=== PATIENT | female | born 1955 | race Caucasian/White ===

== ENCOUNTER 2020-05-20 02:14 | Inpatient (IN) | payer OTHER ==
--- OUTSIDE RECORDS SUMMARY | 2020-05-20 02:17 | XMS REPORT | Continuity of Care Document ---
:1955 Author Organization [facility] t Address [address] [place] [address] Care Team Providers Name Role Phone Unavailable Unavailable Unavailable Problems Condition Condition Condition Status Onset Resolution Last Treating Co mments Source Name Details Category Date Date Treatment Clinician Date Encounter Encounter Diagnosis Active [facility] - screening screening Franki alhaji colonoscop colonoscop l y y [facility] Adult Adult Diagnosis Active [facility] general general [facility] medical [facility] exam exam l [facility] Routine Routine Diagnosis Active [facility] gynecologi gynecologi [place] [facility] - sandoval sandoval Memoria examinatio examinatio l n n [facility] Hyperlipid Hyperlipid Diagnosis Active [facility] em[facility], emia, [facility] - mixed mixed [facility] l [facility] Encounter Encounter Problem Active [facility] for for [facility] - screening screening Franki alhaji for for l malignant malignant Outp ati neoplasm neoplasm ent of breast of breast Clin ics Vitamin D Vitamin D Diagnosis Active C [facility] deficiency deficiency [place] [facility] - [facility] Allergic Allergic Problem Active [facility] rhinitis rhinitis [facility] HTN HTN Problem Active [facility] (hypertens (hypertens [place] [facility] - ion) ion) [facility] Viral wart Viral wart Problem Active [facility] Renal Renal Diagnosis Active [facility] insufficie insufficie [place] [facility] - ncy ncy [facility] Yeast Yeast Diagnosis Active [facility] vaginitis vaginitis [facility] s - [facility] Allergies, Adverse Reactions, Alerts Allergy Allergy Status Severity Reaction(s) Onset Inactive Treating Comm ents Source Name Type Date Date Clinician penicill Adverse Active anaphylaxis [facility] in Reaction [facility] Medications Ordered Filled Start Stop Current Ordering Indication Dosage Frequency Signature Comments Components Source Medication Medication Date Date Medication? Clinician (SIG) Name Name Amlodipine Amlodipine Yes Na Ann as [facility] B[facility]-Benaze Besy-Benaze 2-20 directed [facility] - pril HCl pril HCl 00:00: Memor ia 00 l [facility] Voltstephanie Ma Yes Na Ann not [facility] defined [facility]ics Aspir-81 Aspir-81 Yes Na Ann [address] [facility] EpiPen EpiPen Yes Na Ann not [facility] 2-Robert 2-Robert defined [facility] Procedures This patient has no known procedures. Encounters Start End Encounter Admission Attending Care Care Encounter Source Date/Time Date/Time Type Type Clinicians Facility Department ID 2018-04-04 2018-04-04 Outpatient Jeffrey Walker [id number] 09[facility]15:00 09:15:00 [employer] [place] [facility] Family Medicine Medicine [facility] Results This patient has no known results.
[2020-05-20] MEDS ORDERED: METOPROLOL TAR 50 MG TAB ONE (02:37)
[2020-05-20] MEDS ORDERED: FAMOTIDINE 20 MG/2 ML VIAL IV ONE (02:38)
[2020-05-20] MEDS ORDERED: ONDANSETRON 4 MG/2 ML VIAL ONE (02:38)
[2020-05-20] MEDS ORDERED: MORPHINE 2 MG/ML SYR ONE (02:38)
[2020-05-20 03:08] LABS: Protime INR 0.99
[2020-05-20 03:09] LABS: Absolute Lymphocytes (CBC) 2.4 K/uL (0.7-4.9); Basophils % 0.5 % (0-1.3); Hematocrit 38.6 % (36.0-45.0); Lymphocytes % 21.5 % (15.3-44.8); MPV 9.1 fL (7.6-11.3); RBC Red Blood Cell Count 4.02 M/uL (3.86-4.86)
[2020-05-20 03:30] LABS: ALT/SGPT 49 U/L (12-78); AST/SGOT 30 U/L (15-37); Albumin 3.1 g/dL (3.4-5.0); Alkaline Phosphatase 98 U/L (45-117); BUN Blood Urea Nitrogen 12 mg/dL (7-18); Bicarbonate 28 mmol/L (21-32); Bilirubin Direct 0.1 mg/dL (0-0.2); Bilirubin Total 0.4 mg/dL (0.2-1.0); Glucose Level 154 mg/dL (74-106); Lipase 18600 U/L (73-393); Magnesium 2.1 mg/dL (1.8-2.4); NT PRO-BNP 69 pg/mL (<125); Potassium 3.7 mmol/L (3.5-5.1); Sodium Level 145 mmol/L (136-145); Troponin (Emerg Dept Use Only) < 0.02 ng/mL (0.0-0.045)
[2020-05-20] MEDS ORDERED: NA CHLORIDE 0.9% 1,000 ML ONE (03:56)
[2020-05-20] MEDS ORDERED: Levofloxacin500mg IV 500 MG/100 ML BAG IV ONE (03:56)
[2020-05-20 04:11] LABS: HDL Cholesterol 53 mg/dL (40-60); LDL Cholesterol, Calculated 128 (<130)
--- NOTE | 2020-05-20 04:26 | ER ---
Nurse's Notes [facility] Name: Crys Murillo Age: 64 yrs Sex: Female : 1955 Arrival Date: 05/20/2020 Time: 02:15 Bed 5 Private MD: Diagnosis: Abdominal tenderness;Acute pancreatitis;Cholecystitis;Cholelithiasis;Essential (primary) hypertension Presentation: 05/20 02:17 Chief complaint: Patient states: Sudden chest pain radiating to back that began about 1 lp1 hour ago; Vomited x1;. Coronavirus screen: Client denies travel out of the [place] in the last 14 days. At this time, the client does not indicate any symptoms associated with coronavirus-19. Ebola Screen: No symptoms or risks identified at this time. Risk Assessment: Do you want to hurt yourself or someone else? Patient reports no desire to harm self or others. Onset of symptoms was May 20, 2020 at 01:00. 02:17 Method Of Arrival: EMS: [facility] lp1 02:17 Acuity: ANGEL 3 lp1 02:38 Initial Sepsis Screen: Does the patient meet any 2 criteria? No. Patient's initial mg2 sepsis screen is negative. Does the patient have a suspected source of infection? No. Patient's initial sepsis screen is negative. Historical: - Allergies: 02:20 PENICILLINS; lp1 - Home Meds: 02:20 Lotrel 5-20 mg Oral cap 1 cap once daily [Active]; lp1 - PMHx: 02:20 Hypertension; lp1 - PSHx: 02:20 Hysterectomy; lp1 - Immunization history:: Adult Immunizations up to date. - Social history:: Smoking status: Patient denies any tobacco usage or history of. - Family history:: not pertinent. Screenin:20 Abuse screen: Denies threats or abuse. Denies injuries from another. Nutritional lp1 screening: No deficits noted. Tuberculosis screening: No symptoms or risk factors identified. 02:38 Fall Risk IV access (20 points). mg2 Assessment: 02:36 General: Appears in no apparent distress. uncomfortable, Behavior is calm, cooperative. mg2 Pain: Complains of pain in back and chest. Neuro: Level of Consciousness is awake, alert, obeys commands. Cardiovascular: Capillary refill < 3 seconds Patient's skin is warm and dry. Respiratory: Airway is patent Respiratory effort is even, unlabored, Respiratory pattern is regular, symmetrical. GI: Reports vomiting. : No signs and/or symptoms were reported regarding the genitourinary system. EENT: No signs and/or symptoms were reported regarding the EENT system. Derm: Skin is intact, is healthy with good turgor, Skin is pink, warm \T\ dry. normal. Musculoskeletal: Circulation, motion, and sensation intact. Capillary refill < 3 seconds, Reports pain in back. 03:07 Reassessment: patient sent to ct by stretcher. mg2 04:39 Reassessment: Patient appears in no apparent distress at this time. Patient and/or mg2 family updated on plan of care and expected duration. Pain level reassessed. Patient is alert, oriented x 3, equal unlabored respirations, skin warm/dry/pink. Patient denies pain at this time. Patient states feeling better. Vital Signs: 02:17 Temp 98.1(O); Weight 106.59 kg (R); Height 5 ft. 7 in. (170.18 cm); Pain 3/10; lp1 02:24 BP 102 / 50; Pulse 65; Resp 18; Pulse Ox 97% on R/A; mg2 03:00 BP 102 / 56; Pulse 65; Resp 18; Pulse Ox 96% ; ea 04:37 BP 123 / 97; Pulse 78; Resp 18; Pulse Ox 96% on R/A; ea 05:48 BP 146 / 80; Pulse 73; Resp 18; Temp 98.1; Pulse Ox 100% ; mg2 02:17 Body Mass Index 36.81 (106.59 kg, 170.18 cm) lp1 ED Course: 02:15 Patient arrived in ED. mg2 02:17 Chacorta Bob MD is Attending Physician. gonzalo 02:18 Triage completed. lp1 02:18 Arm band placed on. lp1 02:20 Patient has correct armband on for positive identification. yarder operator on. Pulse lp1 ox on. NIBP on. 02:24 Forest Torrse RN is Primary Nurse. mg2 02:37 No provider procedures requiring assistance completed. Maintain EMS IV. Dressing mg2 intact. Good blood return noted. Site clean \T\ dry. Gauge \T\ site: 20 \T\ LAC. 03:19 Radiology exam delayed due to IV insertion attempt and/or patient not having kw1 appropriate IV at this time. 03:29 Inserted saline lock: 22 gauge in left wrist, using aseptic technique. ds4 04:24 Rolando Stroud is Hospitalizing Provider. gonzalo 04:53 Urine Dipstick--Ancillary (enter results) Sent. ds4 07:14 Patient admitted, IV remains in place. mg2 Administered Medications: 02:35 Drug: Pepcid 20 mg Route: IVP; Site: left antecubital; mg2 04:41 Follow up: Response: No adverse reaction mg2 02:35 Drug: morphine 2 mg Route: IVP; Site: left antecubital; mg2 04:42 Follow up: Response: No adverse reaction; RASS: Alert and Calm (0) mg2 02:35 Drug: Zofran (Ondansetron) 4 mg Route: IVP; Site: left antecubital; mg2 04:41 Follow up: Response: No adverse reaction mg2 02:35 Drug: Lopressor (metoprolol TARTRATE) 50 mg Route: PO; mg2 04:41 Follow up: Response: No adverse reaction mg2 03:02 Drug: NS 0.9% 1000 ml Route: IV; Rate: 1 bolus; Site: left antecubital; mg2 04:41 Follow up: Response: No adverse reaction; IV Status: Completed infusion; IV Intake: mg2 1000ml 04:03 Drug: LevaQUIN 500 mg Volume: 100 ml; Route: IVPB; Infused Over: 60 mins; Site: left ea antecubital; 07:14 Follow up: Response: No adverse reaction; IV Status: Completed infusion mg2 04:32 Drug: NS 0.9% 1000 ml Route: IV; Rate: 1 bolus; Site: left antecubital; ea 07:14 Follow up: Response: No adverse reaction; IV Status: Completed infusion; IV Intake: mg2 1000ml 05:02 Drug: NS 0.9% 1000 ml Route: IV; Rate: 125 ml/hr; Site: left antecubital; mg2 Intake: 04:41 IV: 1000ml; Total: 1000ml. mg2 07:14 IV: 1000ml; Total: 2000ml. mg2 Outcome: 04:25 Decision to Hospitalize by Provider. gonzalo 06:20 Admitted to Med/surg accompanied by tech, via wheelchair, with chart, Report called to keyla Olivarez RN 06:20 Condition: stable 06:20 Instructed on the need for admit, Demonstrated understanding of instructions. 07:24 Patient left the ED. ss Signatures: Chacorta Bob MD MD cha Smirch, Shelby, RN RN ss Brit Madera RN RN lp1 Robert Abdi ds4 Toshia Watkins RN RN Rosemary Villeda kw1 Forest Torres RN RN mg2
--- NOTE | 2020-05-20 04:26 | EDPHYS ---
Physician Documentation [facility] Name: Crys Murillo Age: 64 yrs Sex: Female : 1955 Arrival Date: 05/20/2020 Time: 02:15 Bed 5 Private MD: ED Physician Chacorta Bob HPI: 05/20 02:56 This 64 yrs old Female presents to ER via EMS with complaints of abdomem , gonzalo chest and back pain. 02:56 The patient presents with abdominal pain in the epigastric area, abdominal distention gonzalo in the upper abdomen, in the lower abdomen. Onset: The symptoms/episode began/occurred just prior to arrival. The patient presents with pain that is acute, with no known mechanism of injury. The symptoms are located in the thoracic area. Onset: The symptoms/episode began/occurred just prior to arrival, this morning. The pain radiates to the thoracic area. Associated signs and symptoms: Pertinent positives: chest pain. Modifying factors: The patient symptoms are alleviated by nothing, the patient symptoms are aggravated by nothing. Severity of symptoms: At their worst the symptoms were moderate, in the emergency department the symptoms have improved, mildly. Historical: - Allergies: 02:20 PENICILLINS; lp1 - Home Meds: 02:20 Lotrel 5-20 mg Oral cap 1 cap once daily [Active]; lp1 - PMHx: 02:20 Hypertension; lp1 - PSHx: 02:20 Hysterectomy; lp1 - Immunization history:: Adult Immunizations up to date. - Social history:: Smoking status: Patient denies any tobacco usage or history of. - Family history:: not pertinent. ROS: 02:56 Constitutional: Negative for fever, chills, and weight loss, Eyes: Negative for injury, gonzalo pain, redness, and discharge, ENT: Negative for injury, pain, and discharge, Neck: Negative for injury, pain, and swelling, Cardiovascular: Negative for chest pain, palpitations, and edema, Respiratory: Negative for shortness of breath, cough, wheezing, and pleuritic chest pain, Back: Negative for injury and pain, : Negative for injury, bleeding, discharge, and swelling, MS/Extremity: Negative for injury and deformity, Skin: Negative for injury, rash, and discoloration, Neuro: Negative for headache, weakness, numbness, tingling, and seizure, Psych: Negative for depression, anxiety, suicide ideation, homicidal ideation, and hallucinations, Allergy/Immunology: Negative for hives, rash, and allergies, Endocrine: Negative for neck swelling, polydipsia, polyuria, polyphagia, and marked weight changes, Hematologic/Lymphatic: Negative for swollen nodes, abnormal bleeding, and unusual bruising. 02:56 Abdomen/GI: Positive for abdominal pain, of the epigastric area, right upper quadrant and left upper quadrant. 02:56 MS/extremity: Negative for acute changes, decreased range of motion, swelling, tenderness. Exam: 02:59 Constitutional: This is a well developed, well nourished patient who is awake, alert, gonzalo and in no acute distress. Head/Face: Normocephalic, atraumatic. Eyes: Pupils equal round and reactive to light, extra-ocular motions intact. Lids and lashes normal. Conjunctiva and sclera are non-icteric and not injected. Cornea within normal limits. Periorbital areas with no swelling, redness, or edema. ENT: Nares patent. No nasal discharge, no septal abnormalities noted. Tympanic membranes are normal and external auditory canals are clear. Oropharynx with no redness, swelling, or masses, exudates, or evidence of obstruction, uvula midline. Mucous membranes moist. Neck: Trachea midline, no thyromegaly or masses palpated, and no cervical lymphadenopathy. Supple, full range of motion without nuchal rigidity, or vertebral point tenderness. No Meningismus. Chest/axilla: Normal chest wall appearance and motion. Nontender with no deformity. No lesions are appreciated. Cardiovascular: Regular rate and rhythm with a normal S1 and S2. No gallops, murmurs, or rubs. Normal PMI, no JVD. No pulse deficits. Respiratory: Lungs have equal breath sounds bilaterally, clear to auscultation and percussion. No rales, rhonchi or wheezes noted. No increased work of breathing, no retractions or nasal flaring. Back: No spinal tenderness. No costovertebral tenderness. Full range of motion. Female : Normal external genitalia. Skin: Warm, dry with normal turgor. Normal color with no rashes, no lesions, and no evidence of cellulitis. MS/ Extremity: Pulses equal, no cyanosis. Neurovascular intact. Full, normal range of motion. Neuro: Awake and alert, GCS 15, oriented to person, place, time, and situation. Cranial nerves II-XII grossly intact. Motor strength 5/5 in all extremities. Sensory grossly intact. Cerebellar exam normal. Normal gait. Psych: Awake, alert, with orientation to person, place and time. Behavior, mood, and affect are within normal limits. 02:59 Abdomen/GI: Inspection: distension, Bowel sounds: normal, Palpation: mild abdominal tenderness, moderate abdominal tenderness, in the epigastric area, right upper quadrant and left upper quadrant. 03:02 ECG was reviewed by the Attending Physician. [facility] Vital Signs: 02:17 Temp 98.1(O); Weight 106.59 kg (R); Height 5 ft. 7 in. (170.18 cm); Pain 3/10; lp1 02:24 BP 102 / 50; Pulse 65; Resp 18; Pulse Ox 97% on R/A; mg2 03:00 BP 102 / 56; Pulse 65; Resp 18; Pulse Ox 96% ; ea 04:37 BP 123 / 97; Pulse 78; Resp 18; Pulse Ox 96% on R/A; ea 05:48 BP 146 / 80; Pulse 73; Resp 18; Temp 98.1; Pulse Ox 100% ; mg2 02:17 Body Mass Index 36.81 (106.59 kg, 170.18 cm) lp1 MDM: 02:17 Patient medically screened. [facility] 03:00 Differential diagnosis: Obesity Peptic Ulcer AAA, acute coronary syndrome, coronary gonzalo artery disease, cholecystitis, Cholelithiasis, gastritis, gastroesophageal reflux disease, Hepatitis, myocardia ischemia or infarction, non-specific abd pain, pancreatitis, Peptic Ulcer Disease. Data reviewed: vital signs, nurses notes, old medical records, lab test result(s), EKG, radiologic studies. Data interpreted: vehicle monitor technician: Pulse oximetry:. Test interpretation: by ED physician or midlevel provider: ECG, plain radiologic studies. Counseling: I had a detailed discussion with the patient and/or guardian regarding: the historical points, exam findings, and any diagnostic results supporting the discharge/admit diagnosis, lab results, radiology results, the need for further work-up and treatment in the hospital. 05/20 02:16 Order name: Basic Metabolic Panel mg2 05/20 02:16 Order name: CBC with Diff mg2 05/20 02:16 Order name: LFT's mg2 05/20 02:16 Order name: Magnesium [facility] [place]/20 02:16 Order name: NT PRO-BNP [facility] [place]/20 02:16 Order name: PT-INR [facility] [place]/20 02:16 Order name: Troponin (emerg Dept Use Only) [facility] [place] 02:20 Order name: Lipase [facility] 05/20 03:12 Order name: CBC with Automated Diff; Complete Time: 03:34 EDMS 05/20 03:12 Order name: Protime (+INR); Complete Time: 03:34 EDMS 05/20 03:31 Order name: Basic Metabolic Panel; Complete Time: 04:22 EDMS 05/20 03:31 Order name: Liver (Hepatic) Function; Complete Time: 04:22 EDMS 05/20 03:31 Order name: Troponin (Emerg Dept Use Only); Complete Time: 04:22 EDMS 05/20 03:31 Order name: NT PRO-BNP; Complete Time: 04:22 EDMS 05/20 02:16 Order name: XRAY Chest (1 view) [facility] 05/[place] 02:16 Order name: EKG; Complete Time: 02:17 [facility] 05/20 02:21 Order name: CT Aorta for Dissection [facility] 05/20 03:31 Order name: Magnesium; Complete Time: 04:22 EDMS 05/20 03:31 Order name: Lipase; Complete Time: 04:22 EDMS 05/20 03:37 Order name: Lipid Profile [facility] 05/20 04:12 Order name: Lipid Profile; Complete Time: 04:22 EDMS 05/20 04:47 Order name: Urine Dipstick--Ancillary (enter results) ds4 05/20 02:16 Order name: Cardiac monitoring; Complete Time: 02:36 [facility] 05/[place] 02:16 Order name: EKG - Nurse/Tech; Complete Time: 02:36 [facility] 05/[place] 02:16 Order name: IV Saline Lock; Complete Time: 02:36 [facility] 05/[place] 02:16 Order name: Labs collected and sent; Complete Time: 02:36 [facility] 05/[place] 02:16 Order name: O2 Per Protocol; Complete Time: 02:36 [facility] 05/[place] 02:16 Order name: O2 Sat Monitoring; Complete Time: 02:36 [facility] 05/[place] 02:20 Order name: Urine Dipstick-Ancillary (obtain specimen); Complete Time: 04:42 gonzalo EC:02 Rate is 61 beats/min. Rhythm is regular. QRS [place] is Normal. [place] interval is normal. QRS gonzalo interval is normal. QT interval is normal. No Q waves. T waves are Normal. No ST changes noted. Clinical impression: Normal ECG, NSR w/ Non-specific ST/T Changes, and No evidence of ischemia. Interpreted by me. Reviewed by me. Administered Medications: 02:35 Drug: Pepcid 20 mg Route: IVP; Site: left antecubital; mg2 04:41 Follow up: Response: No adverse reaction mg2 02:35 Drug: morphine 2 mg Route: IVP; Site: left antecubital; mg2 04:42 Follow up: Response: No adverse reaction; RASS: Alert and Calm (0) mg2 02:35 Drug: Zofran (Ondansetron) 4 mg Route: IVP; Site: left antecubital; mg2 04:41 Follow up: Response: No adverse reaction mg2 02:35 Drug: Lopressor (metoprolol TARTRATE) 50 mg Route: PO; mg2 04:41 Follow up: Response: No adverse reaction mg2 03:02 Drug: NS 0.9% 1000 ml Route: IV; Rate: 1 bolus; Site: left antecubital; mg2 04:41 Follow up: Response: No adverse reaction; IV Status: Completed infusion; IV Intake: mg2 1000ml 04:03 Drug: LevaQUIN 500 mg Volume: 100 ml; Route: IVPB; Infused Over: 60 mins; Site: left ea antecubital; 07:14 Follow up: Response: No adverse reaction; IV Status: Completed infusion mg2 04:32 Drug: NS 0.9% 1000 ml Route: IV; Rate: 1 bolus; Site: left antecubital; ea 07:14 Follow up: Response: No adverse reaction; IV Status: Completed infusion; IV Intake: mg2 1000ml 05:02 Drug: NS 0.9% 1000 ml Route: IV; Rate: 125 ml/hr; Site: left antecubital; mg2 Disposition: 05/20/20 04:25 Hospitalization ordered by Rolando Stroud for Inpatient Admission. Preliminary diagnosis are Abdominal tenderness, Acute pancreatitis, Cholecystitis, Cholelithiasis, Essential (primary) hypertension. - Bed requested for Telemetry/MedSurg (Inpatient). - Status is Inpatient Admission. ss - Condition is Fair. - Problem is new. - Symptoms have improved. Signatures: Dispatcher [employer] EDChacorta Prasad MD MD cha Smirch, Shelby, RN RN ss Brit Madera RN RN lp1 Tash Acevedo, BERNABE RN Toshia Watkins, RN RN ea Forest Torres, RN RN mg2 Corrections: (The following items were deleted from the chart) 05:12 04:25 Hospitalization Ordered by Rolando Stroud for Inpatient Admission. Preliminary cg diagnosis is Abdominal tenderness; Acute pancreatitis; Cholecystitis; Cholelithiasis; Essential (primary) hypertension. Bed requested for Telemetry/MedSurg (Inpatient). Status is Inpatient Admission. Condition is Fair. Problem is new. Symptoms have improved. [facility] 07:24 05:12 05/20/2020 04:25 Hospitalization Ordered by Rolando Stroud for Inpatient Admission. Preliminary diagnosis is Abdominal tenderness; Acute pancreatitis; Cholecystitis; Cholelithiasis; Essential (primary) hypertension. Bed requested for Telemetry/MedSurg (Inpatient). Status is Inpatient Admission. Condition is Fair. Problem is new. Symptoms have improved. cg
[2020-05-20] MEDS ORDERED: AMOX TR/K CLAV 400MG CHEW TAB PO ONE (06:19)
--- NOTE | 2020-05-20 07:23 | P.HP ---
Certification for Inpatient Patient admitted to: Inpatient With expected LOS: >2 Midnights Practitioner: I am a practitioner with admitting privileges, knowledge of patient current condition, hospital course, and medical plan of care. Services: Services provided to patient in accordance with Admission requirements found in Title 42 Section 412.3 of the Code of Federal Regulations Patient History Date of Service: 05/20/20 Reason for admission: Epigastric pain History of Present Illness: 64-year-old woman with a history of hypertension presented emergency department with a complaint of sudden onset of epigastric pain, radiating to the back, associated with vomiting, maximum pain intensity of 9/10, relieved by morphine, no aggravating factors. Her initial troponin in the ED is negative. EKG is unremarkable. Chest x-ray unremarkable. CT abdomen and pelvis reports findings suggestive of pancreatitis and cholelithiasis with mild gallbladder wall thickening. [place] [address]. Patient is admitted for further management. Allergies Penicillins Allergy (Unverified 03/28/15 13:38) Unknown - Past Medical/Surgical History -: Hypertension -: Hysterectomy - Family History Brother -: Cancer - Social History Smoking Status: Never smoker Alcohol use: Yes CD- Drugs: No Place of Residence: Home Review of Systems Other: Except as documented, all other systems reviewed and negative. Physical Examination - Physical Exam General: Alert, In no apparent distress, Oriented x3 HEENT: Atraumatic, Mucous membr. moist/pink, EOMI, Sclerae nonicteric Neck: Supple, JVD not distended Respiratory: Clear to auscultation bilaterally, Normal air movement Cardiovascular: No edema, Regular rate/rhythm, Normal S1 S2 Capillary refill: <2 Seconds Gastrointestinal: Normal bowel sounds, Soft and benign, Non-distended, Tenderness (Epigastrium) Musculoskeletal: No swelling, No erythema Integumentary: No rashes, No erythema Neurological: Normal strength at 5/5 x4 extr, Cranial nerves 3-12 intact - Studies Laboratory Data (last 24 hrs) 05/20/20 03:37: Triglycerides Cancelled, Cholesterol Cancelled, HDL Cholesterol Cancelled, Cholesterol/HDL Ratio Cancelled 05/20/20 02:20: Lipase Cancelled 05/20/20 02:16: PT 11.7, INR 0.99 05/20/20 02:16: WBC 11.0 H, Hgb 13.2, Hct 38.6, Plt Count 278 05/20/20 02:16: Sodium 145, Potassium 3.7, BUN 12, Creatinine 0.96, Glucose 154 H, Magnesium 2.1, Total Bilirubin 0.4, AST 30, ALT 49, Alkaline Phosphatase 98, Triglycerides 108, Cholesterol 203 H, HDL Cholesterol 53, Cholesterol/HDL Ratio 3.83, Lipase 43498 H Assessment and Plan - Problems (Diagnosis) (1) Acute pancreatitis Current Visit: Yes Status: Acute (2) Cholelithiasis Current Visit: Yes Status: Acute (3) Hypertension Current Visit: Yes Status: Acute - Plan Admit to the medical floor. Supportive measures with IV hydration, antiemetics. Keep NPO for today. Empiric IV Levaquin Pain management as needed. Monitor lipase level daily. Obtain right upper quadrant sono. Consult general surgery. GI consult pending RUQ sono. Continue home antihypertensives - Advance Directives Does patient have a Living Will: No Does patient have a Durable POA for Healthcare: No
[2020-05-20] MEDS ORDERED: MORPHINE 2 MG/ML SYR IV PRN (07:40)
[2020-05-20] MEDS: D5 0.9 NS 1,000 ML IV SCH ×4 (07:40→22:55)
[2020-05-20] MEDS ORDERED: ONDANSETRON 4 MG/2 ML VIAL IV PRN (07:40)
[2020-05-20 08:04] LABS: Urine Blood TRACE (NEG); Urine Glucose NEGATIVE (NEG); Urine Protein NEGATIVE (NEG); Urine pH 6.5 (5.0-7.0)
--- NOTE | 2020-05-20 11:33 | RAD REPORT ---
EXAM DESCRIPTION: RAD - Chest Single View - 05/20/2020 2:43 am CLINICAL HISTORY: CHEST PAIN Chest pain. COMPARISON: CHEST SINGLE VIEW dated 03/28/2015 FINDINGS: Portable technique limits examination quality. The lungs are grossly clear. The heart is normal in size. No displaced fractures. IMPRESSION: No acute intrathoracic process suspected.
--- NOTE | 2020-05-20 11:34 | RAD REPORT ---
EXAM DESCRIPTION: CTA of the chest, abdomen, and pelvis with contrast CLINICAL HISTORY: CHEST PAIN COMPARISON: None Available. TECHNIQUE: CTA of the chest, abdomen and pelvis performed following IV administration of iodinated c ontrast . 3-D/MIP reformatted images available. FINDINGS: Chest: Thyroid: No abnormalities of the visualized thyroid. Great Vessels: Great vessels have normal anatomic configuration. Thoracic Aorta: Normal. The liver and ascending thoracic aorta. Atherosclerotic calcification. Normal caliber descending thoracic aorta. No evidence of thoracic aortic dissection. Pulmonary arteries: No filling defects identified. Heart: Coronary artery atherosclerosis. No cardiomegaly or significant pericardial effusion. Lymph Nodes: No enlarged mediastinal lymph nodes identified. Esophagus: No abnormalities of the esophagus identified Other: No additional findings. Lungs: Mild bibasilar dependent atelectasis. No confluent airspace consolidation. Punctate right uppe r lobe granuloma. Pleura: No pleural effusion or pneumothorax. Trachea/Airways: No abnormalities of the visualized trachea or airways. Abdomen: Liver: The liver has normal size and density. No intrahepatic mass or biliary dilatation. Gallbladder: Calcified gallstone. Mild gallbladder wall thickening. Spleen, Pancreas, and Adrenal Glands: Peripancreatic inflammatory change. No well-circumscribed per ipancreatic fluid collection. Adrenal glands spleen are unremarkable. Kidneys: The kidneys have normal size and contour without evidence of solid mass or hydronephrosis. Vasculature: Normal caliber abdominal aorta with in-line flow into the common iliac, external iliac, common femoral, and proximal superficial femoral arteries. The proximal profunda femoral arteries are patent. The internal iliac arteries are patent. No evidence of stenosis or occlusion involving the visceral and renal arteries. Accessory bilateral renal arteries. IVC is normal caliber. Stomach: The stomach and duodenum have normal course. Other: No free intraperitoneal air. No free fluid or lymphadenopathy. Pelvis: Bladder: Urinary bladder is unremarkable. Bowel: No dilated loops of large or small bowel. Appendix: Normal appendix. Pelvis: Prior hysterectomy. Bones: Mild degenerative endplate spondylosis of the spine. IMPRESSION: 1. No evidence of aortic aneurysm or dissection. 2. No pulmonary embolus. 3. Peripancreatic inflammatory change suggesting acute interstitial pancreatitis. 4. Cholelithiasis with mild gallbladder wall thickening. 5. Coronary artery atherosclerosis. This exam was performed according to our departmental dose-optimization program, which includes autom ated exposure control, adjustment of the mA and/or kV according to patient size and/or use of iterati ve reconstruction technique. Electronically signed by: René Ellis 05/20/2020 4:04 AM CDT Due to temporary technical issues with the PACS/Fluency reporting system, reports are being signed by the in house radiologist without review as a courtesy to ensure prompt reporting. The interpreting r adiologist is fully responsible for the content of the report.
--- NOTE | 2020-05-20 11:34 | RAD REPORT ---
EXAM DESCRIPTION: US - Abdomen Exam Limited - 05/20/2020 8:16 am CLINICAL HISTORY: Cholithiasis. Abdominal pain COMPARISON: Angio Aorta For Dissection dated 05/20/2020 FINDINGS: The gallbladder demonstrates several shadowing gallstones. Gallbladder wall is thickened t o 10 mm. The common bile duct is mildly prominent measuring 6 mm. The liver demonstrates no findings of intrahepatic biliary dilatation. IMPRESSION: Acute cholecystitis is a possibility. Suggest correlation with clinical Cruz's sign.
[2020-05-20 12:53] VITALS: BMI 36.8
--- NOTE | 2020-05-20 14:13 | P.PN ---
Subjective Date of Service: 05/20/20 Still with epigastric pain. Seen by surgery and patient may need outpatient laparoscopic cholecystectomy. Will check lipid profile as well. Patient denies drinking alcohol. She is having significant pain in the epigastric region. She has some rebound and guarding as well. Also had a long conversation with General surgery and discuss with them regarding plan of care. Review of Systems 10-point ROS is otherwise unremarkable Physical Examination - Vital Signs Temperature: 97.8 F Blood Pressure: 139/71 Pulse: 69 Respirations: 20 Pulse Ox (%): 94 - Physical Exam General: Alert, In no apparent distress, Oriented x3 Respiratory: Clear to auscultation bilaterally, Normal air movement Cardiovascular: Regular rate/rhythm, Normal S1 S2, No murmurs Gastrointestinal: Normal bowel sounds, Soft and benign, Non-distended, No tenderness Musculoskeletal: No clubbing, No swelling, No tenderness Neurological: Sensation intact, Cranial nerves 3-12 intact - Studies Laboratory Data (last 24 hrs) 05/20/20 03:37: Triglycerides Cancelled, Cholesterol Cancelled, HDL Cholesterol Cancelled, Cholesterol/HDL Ratio Cancelled 05/20/20 02:20: Lipase Cancelled 05/20/20 02:16: PT 11.7, INR 0.99 05/20/20 02:16: WBC 11.0 H, Hgb 13.2, Hct 38.6, Plt Count 278 05/20/20 02:16: Sodium 145, Potassium 3.7, BUN 12, Creatinine 0.96, Glucose 154 H, Magnesium 2.1, Total Bilirubin 0.4, AST 30, ALT 49, Alkaline Phosphatase 98, Triglycerides 108, Cholesterol 203 H, HDL Cholesterol 53, Cholesterol/HDL Ratio 3.83, Lipase 81292 H Medications List Reviewed: Yes Assessment & Plan - Problems (Diagnosis) (1) Acute pancreatitis Current Visit: Yes Status: Acute (2) Cholelithiasis Current Visit: Yes Status: Acute (3) Hypertension Current Visit: Yes Status: Acute - Plan Plan: 1. IV fluids 2. Pain control 3. Lipid profile 4. Monitor lipase levels 5. Monitor LFTs 6. Strict eyes and nose 7. Monitor labs including renal function, electrolytes, white blood cell count 8. GI and DVT prophylaxis Discharge Plan: Home Plan to discharge in: Greater than 2 days - Advance Directives Does patient have a Living Will: No Does patient have a Durable POA for Healthcare: No - Code Status/Comfort Care Code Status Assessed: Yes Code Status: Full Code Critical Care: No Time Spent Managing PTS Care (In Minutes): 60
[2020-05-20] MEDS: HEPARIN 5000 UNIT/ML 1 ML VIAL SQ SCH ×2 (16:34→17:09)
--- NOTE | 2020-05-20 19:02 | CON ---
Date of Consultation: 05/20/2020 Brief History Of Present Illness: The patient is a 64-year-old female with a history of hy pertension, presented to the ER with complaints of sudden onset of epigastric abdominal pain, radiate d to her back, associated with nausea and vomiting. She was having a heart attack and she had chest tightness as well associated and the pain got significantly worse. She as such came to the emergency room with the above-stated complaints, brought in by her friend. She had a cardiac workup, given mo rphine which improved her symptoms. She had no other aggravating factors that she can appreciate. S he cannot recall a specific food trigger. She has never had similar episodes before in the past. No recent travel. No sick contacts. No new food exposures. No COVID exposures by her description. Past Medical History: Significant for hypertension. Past Surgical History: She has had a hysterectomy and diagnostic laparoscopy for planning of a trans vaginal hysterectomy. She has had other non-abdominal surgery. Family History: Her brother had cancer. Allergies: TO PENICILLIN WHICH CAUSES ANAPHYLAXIS. Social History: She denies smoking. Drinks 3 beers every other week approximately. Denies any recr eational drug use. Review of Systems: Currently, she feels significantly better. Ten-point review of systems other than HPI, denies. Physical Examination: Vital Signs: At the time of my examination, her BMI was 36.8. Her blood pressure was 139/71, pulse was 69, respiratory rate 20, temperature 97.8. General: She is awake, alert, oriented. Psychiatric: She is appropriate conversive. HEENT: She is normocephalic. Sclerae anicteric. Mucous membranes are moist. Oropharynx clear. Neck: Supple. No JVD. Chest: Normal expansion and excursion. Cardiovascular: Regular rate and rhythm. Pulmonary: Clear to auscultation bilaterally. Abdomen: Soft with mild epigastric and right upper quadrant tenderness to palpation. Negative Desmond y sign at this time. No rebound. No guarding. No focal peritonitis. Abdomen: Obese generally. Extremities: No clubbing, cyanosis, or edema. Skin: Warm and dry. Laboratory Data: Reveals white blood count is 11.0, hemoglobin is 13.2, hematocrit of 38.6, platelet count is 278, neutrophils are normal at 78%. Her PT was 11.7, INR 0.9. Sodium 145, potassium 3.7, chloride 108, carbon dioxide 28, BUN 12, creatinine 0.9, glucose is 154, calcium 8.5, magnesium 2.1, total bilirubin 0.4, direct bilirubin 0.1, AST 30, ALT 49, alkaline phosphatase 98. Troponin less th an 0.02. Her proBNP 69. Her lipase was 18,600. Her UA showed only trace blood, otherwise essential ly negative. She had imaging performed, which included abdominal ultrasound, which was officially re ad as acute cholecystitis possibility suggest correlation with clinical Cruz sign, the gallbladder demonstrates several shadowing gallstones. Gallbladder wall was thickened at 10 mm. Common bile claudia t is mildly prominent measuring 6 mm. Liver demonstrates no findings of intrahepatic biliary dilatat ion. She had a CT dissection protocol performed as well, which was officially read as no evidence ao rtic aneurysm or dissection. No pulmonary embolus, peripancreatic inflammatory change to suggest acu te interstitial pancreatitis, cholelithiasis with marked gallbladder wall thickening, coronary artery atherosclerosis. Assessment And Plan: This is a 64-year-old female, who comes in with signs and symptoms consistent w ith gallstone pancreatitis. 1.IV fluid hydration. 2.Serial abdominal exams. 3.N.p.o. 4.Stranding of labs. 5.I have explained the risks, benefits, and alternatives of laparoscopic possible open cholecystecto my, possible intraoperative cholangiogram, including but not limited to bleeding, infection, damage t o surrounding tissues, injury to bile ducts, intestines, need for further operations or procedures. The patient agrees to proceed as indicated. Thank you for this interesting consult. ROXANE/ZACK Voice ID: [id number] Report ID: [id number]
[2020-05-20 21:38] LABS: Urine Appearance CLEAR; Urine Bilirubin NEGATIVE (NEG); Urine Blood TRACE (NEG); Urine Color YELLOW; Urine Glucose NEGATIVE (NEG); Urine Protein NEGATIVE (NEG); Urine Urobilinogen 0.2 mg/dL (0.2-1.0)
[2020-05-20 21:49] LABS: Urine Microscopic Reflex ORDER UMIC
[2020-05-20 21:56] LABS: Urine Bacteria <20 /HPF (<20)
[2020-05-20 21:57] LABS: Urine Culture Reflex Order NOT NEEDED
[2020-05-21] MEDS: HEPARIN 5000 UNIT/ML 1 ML VIAL SQ SCH ×2 (00:28→10:29)
[2020-05-21] MEDS: Levofloxacin 750mg IV 750 MG/150 ML BAG IV SCH (03:26)
[2020-05-21 06:00] LABS: Absolute Lymphocytes (CBC) 2.6 K/uL (0.7-4.9); Basophils % 0.6 % (0-1.3); Hematocrit 38.2 % (36.0-45.0); Lymphocytes % 27.6 % (15.3-44.8); MPV 8.8 fL (7.6-11.3); RBC Red Blood Cell Count 3.95 M/uL (3.86-4.86)
[2020-05-21 06:15] LABS: Albumin 2.9 g/dL (3.4-5.0); Bilirubin Total 0.4 mg/dL (0.2-1.0); Phosphorus 2.7 mg/dL (2.5-4.9); Potassium 3.6 mmol/L (3.5-5.1); Protein, Total 6.8 g/dL (6.4-8.2)
[2020-05-21] MEDS: D5 0.9 NS 1,000 ML IV SCH ×3 (06:42→23:59)
[2020-05-21] MEDS: ACETAMINOPHEN 500 MG TAB PO PRN ×2 (06:49→16:12)
[2020-05-21] MEDS ORDERED: KCL 20 MEQ/100 mL IVPB 20 MEQ/100 ML BAG IV SCH (07:30)
[2020-05-21] MEDS ORDERED: ACETAMIN/CAFFEINE/BUTALB TAB PO ONE (16:46)
[2020-05-21] MEDS ORDERED: CETIRIZINE HCL 5 MG TABLET PO ONE (16:47)
[2020-05-22] MEDS: Levofloxacin 750mg IV 750 MG/150 ML BAG IV SCH (03:45)
[2020-05-22 04:17] LABS: Potassium 3.5 mmol/L (3.5-5.1)
[2020-05-22] MEDS ORDERED: KCL 20 MEQ/100 mL IVPB 20 MEQ/100 ML BAG IV SCH (06:00)
[2020-05-22] MEDS: D5 0.9 NS 1,000 ML IV SCH ×3 (07:40→21:03)
[2020-05-22] MEDS ORDERED: NA CHLORIDE 0.9% 1,000 ML ONE (08:11)
[2020-05-22] MEDS ORDERED: SCOPOLAMINE HYDROBROMIDE PATCH TD ONE (08:29)
[2020-05-22] MEDS ORDERED: BUPIVACA 0.25%/EPI 0.0005%/PF 30 ML VIAL ONE (08:55)
[2020-05-22] MEDS ORDERED: FENTANYL CITR 100 MCG/2 ML ONE (08:57)
[2020-05-22] MEDS ORDERED: ONDANSETRON 4 MG/2 ML VIAL ONE (08:57)
[2020-05-22] MEDS ORDERED: propofoL 200 MG/20 ML VIAL IV ONE (08:57)
[2020-05-22] MEDS ORDERED: LIDOCAINE 2% MPF 5 ML VIAL ONE (08:57)
[2020-05-22] MEDS ORDERED: ROCURONIUM 50 MG/5 ML VIAL IV ONE (08:57)
[2020-05-22] MEDS ORDERED: MIDAZOLAM HCL 2 MG/2 ML INJ ONE (08:57)
[2020-05-22] MEDS ORDERED: dexAMETHasone 10 MG/ML VIAL ONE (08:57)
[2020-05-22] MEDS ORDERED: EPHEDRINE SULF 50 MG/ML VIAL ONE (09:42)
--- NOTE | 2020-05-22 10:14 | P.OP ---
Dental Billing Specialist: NONE,NONE Preoperative diagnosis: Gallstone Pancreatitis Postoperative diagnosis: Gallstone Pancreatitis Primary procedure: Laparoscopic Cholecystectomy Anesthesia: GETA + Local Estimated blood loss: <10cc Specimen: Gallbladder Findings: Inflammatory Changes to Gallbladder, ant / post branch cystic artery Complications: None Transferred to: Recovery Room Condition: Good
[2020-05-22] MEDS ORDERED: NEOSTIGMINE 1 MG/ML -5 ML ONE (10:17)
[2020-05-22] MEDS ORDERED: KETOROLAC 30 MG/ML INJ ONE (10:17)
[2020-05-22] MEDS ORDERED: GLYCOPYRROLATE 0.2 MG/ML SYR ONE (10:17)
[2020-05-22] MEDS ORDERED: HYDROCODONE/APAP 5/325 MG TAB PO PRN (10:27)
[2020-05-22] MEDS ORDERED: PROMETHAZINE INJ 25 MG/ML AMP ONE (11:02)
[2020-05-22] MEDS ORDERED: GUAIFENESIN/CODEINE 5ML UCUP PO PRN (15:44)
[2020-05-22] MEDS ORDERED: CETIRIZINE HCL 5 MG TABLET PO ONE (15:45)
[2020-05-22] MEDS: OXYMETAZOLINE HCL 0.05% 15ML NAS PRN (16:43)
--- NOTE | 2020-05-22 20:58 | OP ---
Date of Procedure: 05/22/2020 Surgeon: Nigel Márquez MD, Preoperative Diagnosis: Gallstone pancreatitis. Postoperative Diagnosis: Gallstone pancreatitis. Procedure Performed: Laparoscopic cholecystectomy. Anesthesia: General endotracheal plus local with 0.25% Marcaine with epinephrine. Estimated Blood Loss: Less than 10 mL. Specimen: Gallbladder. Findings: Inflammatory change in, 1.Gallbladder. 2.Anterior posterior branch of the cystic artery. Complications: None. Disposition: Transferred to recovery room in good condition. Procedure In Detail: After informed consent was obtained, the patient was brought to the operating r oom, prepped and draped in the usual sterile fashion. After adequate anesthesia was achieved, a supr aumbilical area was anesthetized with 0.25% Marcaine, sharply incised. A 5 mm trocar was introduced in the abdomen without complication. Insufflation was obtained to 15 mmHg at this time. There was n o injury to vital structures upon entering the abdomen. Two additional trocar sites were chosen, 1 i n the epigastrium, this is similarly anesthetized and sharply incised. A 5 mm trocar was introduced in the abdomen without evidence of complication under direct visualization. The umbilical trocar was then up-sized to a 12 mm under direct visualization without complication. Additional trocar was manjeet tom in the right upper quadrant. This was similarly anesthetized and sharply incised. A 5 mm trocar was introduced in the abdomen without evidence of complication under direct visualization. The franklyn ent was positioned head up right-side up position. Ratcheted grasper was used to grasp the patient's gallbladder, dissect the omentum off the anterior surface of the gallbladder, was found to be quite thick and fibrous. Using a combination of blunt and electrocautery dissection, I dissected down to t he Jaun pouch. I found that the when dissecting near the Jaun pouch of the gallbladder, ther e was an anterior posterior branch of the cystic artery, which came off with a high approach onto the anterior surface of the gallbladder proximal to the Jaun pouch region near the approximately 1/4 of the length of the gallbladder. Posterior branch dissected off the right hepatic into a posterior branch and you could see the external course of the hepatic artery quite superficial on the bed of t he gallbladder diving back into the liver. Therefore, I dissected these structures circumferentially and skeletonized them with meticulous dissection to expose the anterior posterior branch of the cyst ic artery as well as the cystic duct. After these structures were skeletonized completely, critical view of safety was obtained. The hepatic artery branch could be seen diving back into the liver as d escribed above. I placed a double titanium clips on both the proximal and distal aspect of the cysti c artery and then I placed double titanium clips on the cystic duct as well as singly on the distal a spect of the cystic duct and ligated these 3 structures identified as the cystic duct, anterior poste rior branch of the cystic artery. After this was completed, I removed the gallbladder from the hepat ic fossa with careful blunt and electrocautery dissection, placed the gallbladder in the EndoCatch ba g and removed the umbilical trocar. Re-insufflation was obtained at this time. The area was inspect ed. No additional hemostatic measures required. No leakage of bile was appreciated. The area was c opiously irrigated multiple times and suctioned out completely clear. At this point, the patient was positioned in neutral position and remaining effluent was suctioned out. No additional hemostatic m easures required. No leakage of bile was appreciated and the umbilical trocar site was inspected. T he umbilical trocar was removed. The umbilical trocar site was then closed using a Serg s uture passer with a 0 Vicryl in an interrupted fashion with good approximation of tissues and the abd omen was completely desufflated under direct visualization without evidence of complication. All tro cars were removed. All skin incisions were copiously irrigated and closed with 4-0 Monocryl in a run toi fashion. Dermabond was placed over the top. The patient tolerated the procedure well without evidence of complication, transferred to PACU in good condition. All counts w ere correct at the end of the case. ROXANE/POOJAL Voice ID: [id number] Report ID: [id number]
[2020-05-23 04:06] LABS: Potassium 4.1 mmol/L (3.5-5.1)
[2020-05-23] MEDS: D5 0.9 NS 1,000 ML IV SCH (05:16)
[2020-05-23] MEDS: Levofloxacin 750mg IV 750 MG/150 ML BAG IV SCH (05:16)
[2020-05-23] MEDS: OXYMETAZOLINE HCL 0.05% 15ML NAS PRN (09:00)
[2020-05-23 09:23] VITALS: O2SAT 96
[2020-05-28 12:30] VITALS: BP 139/71; TEMP 97.8
--- NOTE | 2020-05-28 12:32 | P.PN ---
Subjective Date of Service: 05/21/20 Feeling better. Lipase is improving. Plan for surgery tomorrow. Review of Systems 10-point ROS is otherwise unremarkable Physical Examination - Vital Signs Temperature: 97.8 F Blood Pressure: 139/71 Pulse: 69 Respirations: 20 Pulse Ox (%): 94 - Physical Exam General: Alert, In no apparent distress, Oriented x3 Respiratory: Clear to auscultation bilaterally, Normal air movement Cardiovascular: Regular rate/rhythm, Normal S1 S2 Gastrointestinal: Normal bowel sounds, Hypoactive, Soft and benign, Non- distended Musculoskeletal: No clubbing, No swelling, No contractures Neurological: Normal gait, Normal speech, Normal strength at 5/5 x4 extr, Normal tone, Sensation intact, Cranial nerves 3-12 intact - Studies Medications List Reviewed: Yes Assessment & Plan - Problems (Diagnosis) (1) Acute pancreatitis Status: Acute (2) Cholelithiasis Status: Acute (3) Hypertension Status: Acute - Plan Plan: Continue with plan of care as mentioned below: 1. IV fluids 2. Pain control 3. Lipid profile was within normal limits 4. Lipase levels improving 5. Liver function testing is stable 6. Strict I's and O's 7. GI and DVT prophylaxis Discharge Plan: Home Plan to discharge in: Greater than 2 days - Advance Directives Does patient have a Living Will: No Does patient have a Durable POA for Healthcare: No - Code Status/Comfort Care Code Status: Full Code Critical Care: No Time Spent Managing PTS Care (In Minutes): 30
--- NOTE | 2020-05-28 12:37 | P.PN ---
Subjective Date of Service: 05/22/20 Patient doing well with no new complaints. Planned for a lap Cholecystectomy today. Review of Systems 10-point ROS is otherwise unremarkable Physical Examination - Vital Signs Temperature: 97.8 F Blood Pressure: 139/71 Pulse: 69 Respirations: 20 Pulse Ox (%): 94 - Physical Exam General: Alert, In no apparent distress, Oriented x3 Respiratory: Clear to auscultation bilaterally, Normal air movement Cardiovascular: Regular rate/rhythm, Normal S1 S2, No murmurs Gastrointestinal: Normal bowel sounds, Soft and benign, Non-distended, No tenderness Musculoskeletal: No clubbing, No swelling, No tenderness Neurological: Normal strength at 5/5 x4 extr, Sensation intact, Cranial nerves 3-12 intact - Studies Medications List Reviewed: Yes Assessment & Plan - Problems (Diagnosis) (1) Acute pancreatitis Status: Acute (2) Cholelithiasis Status: Acute (3) Hypertension Status: Acute - Plan Plan: Continue with plan of care as mentioned below: 1. Continue IV fluids 2. To the operating room today 3. Lipase levels improving 4. Liver function testing is stable 5. Strict I's and O's 6. GI and DVT prophylaxis Discharge Plan: Home Plan to discharge in: Greater than 2 days - Advance Directives Does patient have a Living Will: No Does patient have a Durable POA for Healthcare: No - Code Status/Comfort Care Code Status: Full Code Critical Care: No Time Spent Managing PTS Care (In Minutes): 30
--- NOTE | 2020-05-28 12:40 | P.DS ---
Discharge Date: 05/23/20 Disposition: ROUTINE DISCHARGE Discharge Condition: GOOD Reason for Admission: Epigastric pain Consultations: General surgery - Problems (1) Acute pancreatitis Status: Acute (2) Cholelithiasis Status: Acute (3) Hypertension Status: Acute Brief History of Present Illness: Patient is a 64-year-old female who came to the hospital with abdominal pain. Patient was found to have acute pancreatitis. Patient had choledocholithiasis as well. Patient will be admitted to the hospital for further evaluation. Hospital Course: Patient was taken to the operating room for laparoscopic cholecystectomy. Patient tolerated the procedure well. At this time, patient is stable for discharge home. Vital Signs/Physical Exam: Temp Pulse Resp BP Pulse Ox 97.8 F 69 20 139/71 94 05/28/20 12:36 05/28/20 12:36 05/28/20 12:36 05/28/20 12:36 05/28/20 12:36 General: Alert, In no apparent distress, Oriented x3 Laboratory Data at Discharge: WBC 9.3 K/uL (4.3-10.9) D 05/21/20 05:42 Hgb 13.1 g/dL (12.0-15.0) 05/21/20 05:42 Hct 38.2 % (36.0-45.0) 05/21/20 05:42 Plt Count 254 K/uL (152-406) 05/21/20 05:42 PT 11.7 SECONDS (9.5-12.5) 05/20/20 02:16 INR 0.99 05/20/20 02:16 Sodium 144 mmol/L (136-145) 05/23/20 03:26 Potassium 4.1 mmol/L (3.5-5.1) 05/23/20 03:26 BUN 7 mg/dL (7-18) 05/23/20 03:26 Creatinine 0.80 mg/dL (0.55-1.3) 05/23/20 03:26 Glucose 136 mg/dL (74-106) H 05/23/20 03:26 Phosphorus 2.7 mg/dL (2.5-4.9) 05/21/20 05:42 Magnesium 2.0 mg/dL (1.8-2.4) 05/21/20 05:42 Total Bilirubin 0.4 mg/dL (0.2-1.0) 05/21/20 05:42 AST 23 U/L (15-37) 05/21/20 05:42 ALT 46 U/L (12-78) 05/21/20 05:42 Alkaline Phosphatase 102 U/L (45-117) 05/21/20 05:42 Triglycerides 135 mg/dL (<150) 05/21/20 05:42 Cholesterol 191 mg/dL (<200) 05/21/20 05:42 HDL Cholesterol 52 mg/dL (40-60) 05/21/20 05:42 Cholesterol/HDL Ratio 3.67 05/21/20 05:42 Lipase 79 U/L (73-393) 05/23/20 03:26 Home Medications: Amlodipine Besylate/Benazepril [Lotrel 5-20 mg Capsule] 1 each PO DAILY 05/20/20 Cetirizine HCl [Zyrtec] 5 mg PO DAILY 05/20/20 Cholecalciferol (Vitamin D3) [Vitamin D 5,000 Iu Cap] 5,000 unit PO DAILY 05/20/20 Patient Discharge Instructions: OK TO DC IV AND DC HOME. FOLLOW-UP WITH PRIMARY CARE PROVIDER IN 1-2 WEEKS. FOLLOW-UP WITH SURGERY IN 1-2 WEEKS. RETURN TO THE ER IF symptoms worsen. CALL or TEXT DR. PITTMAN AT [phone] IF ANY QUESTIONS REGARDING HOSPITAL STAY. PLEASE CALL THE FLOOR AT [phone] IF ANY MEDICATION OR NURSING QUESTIONS. Diet: Regular Activity: Fall precautions Followup: Nigel Márquez MD [ACTIVE - CAN ADMIT] - Time spent managing pt's care (in minutes): 25
== END 2020-05-23 13:39 | disposition home or self-care (01) | DRG 417 ==
LOC: ER 02:14 → ERHOLD 04:25 → 2ND 06:23
PROVIDERS: ADMIT Internal Medicine; ATTEND Hospitalist
PROC: 0FT44ZZ Resection of Gallbladder, Percutaneous Endoscopic Approach (ICD-10-PCS; principal; 2020-05-22 08:30)
DX: K80.20 Calculus of gallbladder without cholecystitis without obstruction (principal); K85.10 Biliary acute pancreatitis without necrosis or infection; K80.50 Calculus of bile duct without cholangitis or cholecystitis without obstruction; I10 Essential (primary) hypertension; Z88.0 Allergy status to penicillin; Z90.710 Acquired absence of both cervix and uterus
CPT/HCPCS: 36415; 71045; 71275; 74175; 76705; 80048; 80053; 80061; 80076; 81003; 81015; 82947; 83690; 83735; 83880; 84100; 84484; 85025; 85610; 88304; 93005; 94760; 96361; 96365; 96366; 96375; 99285; J1100; J1644; J2250; J2270; J2405; J2550; J2704; J2710; J3010; J3480; J7030; J7042; Q9967; U0003

== ENCOUNTER 2022-05-12 00:49 | Emergency (ER) | payer OTHER ==
[2022-05-12 01:29] LABS: Absolute Lymphocytes (CBC) 2.2 K/uL (0.7-4.9); Hematocrit 38.9 % (36.0-45.0); Lymphocytes % 20.3 % (15.3-44.8); MPV 8.2 fL (7.6-11.3); RBC Red Blood Cell Count 4.13 M/uL (3.86-4.86)
[2022-05-12 01:37] LABS: Urine Blood 1+ (Negative); Urine Glucose Negative (Negative); Urine Protein Negative (Negative)
[2022-05-12 01:47] LABS: Albumin 3.4 g/dL (3.4-5.0); Bilirubin Direct 0.1 mg/dL (0-0.2); Bilirubin Total 0.4 mg/dL (0.2-1.0); Magnesium 2.1 mg/dL (1.8-2.4); Protein, Total 6.9 g/dL (6.4-8.2); Troponin High Sensitivity 7.7 pg/mL (<58.9)
[2022-05-12 02:19] LABS: Urine Bacteria <20 /HPF (<20)
[2022-05-12 06:05] VITALS: TEMP 97.8
[2022-05-12 06:13] VITALS: BP 140/70; O2SAT 100
--- NOTE | 2022-05-12 08:48 | EKG ---
Test Date: 2022-05-12 Test Time: 01:21:29 Recreation Attendant: RUPINDER MEASUREMENT RESULTS: Intervals: Rate: 74 ND: 152 QRSD: 82 QT: 398 QTc: 441 [place]: P: 39 ND: 152 QRS: 60 T: 43 INTERPRETIVE STATEMENTS: Normal sinus rhythm Normal ECG Compared to ECG 05/20/2020 02:16:10 No significant changes Electronically Signed On 05-12-22 08:46:32 CDT by Sesar Sesay
--- OUTSIDE RECORDS SUMMARY | 2022-05-12 11:26 | XMS REPORT | Continuity of Care Document ---
:1955 Author Organization [facility] Address [address] [place] [address] Care Team Providers Name Role Phone PAMELA GOVEA Attending Clinician Unavailable Payers Payer Name Policy Type Policy Number Effective Date Expiration Date gustavo [facility] [id number] 2016 [place] 00:00:00 MEDICARE PART A \T\ [id number] 2018 B 00:00:00 Problems Condition Condition Condition Status Onset Resolution Last Treating Co mments Source Name Details Category Date Date Treatment Clinician Date Encounter Encounter Diagnosis Active C ommon for for Spirit screening screening - I colonoscop colonoscop [facility] Adult Adult Diagnosis Active Common general general [facility] medical [facility] exam exam [facility] Routine Routine Diagnosis Active Commo n gynecologi gynecologi Sp kashif sandoval sandoval [facility] examinatio examinatio [facility] Hyperlipid Hyperlipid Diagnosis Active Common emia, emia, Spirit mixed mixed [facility] Encounter Encounter Problem Active Com mon for for Spirit screening screening - CH I for for St malignant malignant [facility] neoplasm neoplasm Medica l of breast of breast Cent er Vitamin D Vitamin D Diagnosis Active C ommon deficiency deficiency Sp kashif [facility] Allergic Allergic Problem Active Commo n rhinitis rhinitis [facility] HTN HTN Problem Active Common (hypertens (hypertens Sp kashif ion) ion) [facility] Viral wart Viral wart Problem Active C ommon [facility] Renal Renal Diagnosis Active Common insufficie insufficie Sp kashif ncy ncy [facility] Yeast Yeast Diagnosis Active Common vaginitis vaginitis Spir it [facility] Allergies, Adverse Reactions, Alerts Allergy Allergy Status Severity Reaction(s) Onset Inactive Treating Comm ents Source Name Type Date Date Clinician PENICILL Drug Active Anaphylaxis Uni vers INS Class 6-15 ity of 00:00: [address] penicill Adverse Active anaphylaxis Co mmon in Reaction [facility] Medications Ordered Filled Start Stop Current Ordering Indication Dosage Frequency Signature Comments Components Source Medication Medication Date Date Medication? Clinician (SIG) Name Name Amlodipine Amlodipine Yes Na Ann as Common Besy-Benaze Besy-Benaze 2-20 directed Spirit pril HCl pril HCl 00:00: - [facility] Voltaren Voltaren Yes Na Ann not Comm on defined [facility] Aspir-81 Aspir-81 Yes Na Ann 1 tablet Common [facility] EpiPen EpiPen Yes Na Ann not Common 2-Robert 2-Robert defined [facility] Procedures This patient has no known procedures. Encounters Start End Encounter Admission Attending Care Care Encounter Source Date/Time Date/Time Type Type Clinicians Facility Department ID 2020-12-10 2020-12-10 [facility] [id number] Univers 15:00:00 15:00:00 PAMELA [facility] 2020-11-19 2020-11-19 [facility] [id number] Univers 12:10:00 12:10:00 PAMELA [facility] 2020-11-19 2020-11-19 Outpatient [facility] [id number] Univers 12:10:00 12:10:00 [id number] [facility] 2018-04-04 2018-04-04 [id number] Common 09:15:00 09:15:00 [facility] Results This patient has no known results.
--- NOTE | 2022-05-12 20:49 | RAD REPORT ---
EXAM DESCRIPTION: RAD - Chest Single View - 05/12/2022 1:25 am CLINICAL HISTORY: 66 years Female, abdominal pain COMPARISON: Prior chest CT performed on 05/20/2020 TECHNIQUE: Single portable x-ray view of the chest performed on May 12, 2022 at 1:21 AM FINDINGS: The lungs are well expanded and are clear. There is no evidence of a pneumothorax. The cardiac silhouette is normal in size and configuration. The mediastinal contours are normal. No acute osseous abnormality is identified. There are remote postsurgical changes of the distal left clavicle. No acute soft tissue abnormalities are seen. Lines and tubes: None. Free air: None IMPRESSION: No evidence of acute intrathoracic disease. Electronically signed by: Sheyla Ford DO 05/12/2022 3:06 AM CDT Due to temporary technical issues with the PACS/FlueNcy reporting system, reports are being signed by the in house radiologists without review as a courtesy to insure prompt reporting. The interpreting radiologist is fully responsible for the content of the report.
--- NOTE | 2022-05-12 21:01 | RAD REPORT ---
EXAM DESCRIPTION: CT - Abdomen Pelvis W Contrast - 05/12/2022 4:14 am CLINICAL HISTORY: 66 years Female Abdominal pain, acute, nonlocalized TECHNIQUE: Axial CT imaging of the abdomen and pelvis was performed following the administration of intravenous contrast.. Oral contrast was not administered. Sagittal and coronal reconstructed image s were then performed. The CT study is performed according to ALARA (as low as reasonably achievabl e) or ALARA/IMAGE GENTLY, with automatic adjustment of mA and/or kV according to patient size. Performed on: May 12, 2022 at 2:37 AM. Comparison: Prior CT abdomen and pelvis performed on 05/20/2020 FINDINGS: Lung bases: The lung bases are clear. Liver: The liver is normal in size and configuration. No focal hepatic abnormalities are identified. Liver attenuation is within normal limits. The hepatic and portal veins are patent. Spleen: The spleen is normal is size, configuration and attenuation. Gallbladder and bile duct: The gallbladder is surgically absent. There is no biliary ductal dilatat ion. Pancreas: The pancreas is grossly normal in size and configuration. Adrenal Glands: The adrenal glands are normal in size and configuration. Kidneys: The kidneys are normal in size and configuration. There is no evidence of hydronephrosis. Th ere is no evidence of nephrolithiasis. No definite solid or cystic renal mass lesions are identified. Stomach: The stomach is grossly normal. There is no definite hiatal hernia. Bowel: The bowel gas pattern is non specific and non obstructive. Appendix: The appendix is normal. Free air: There is no evidence of free air. Free fluid: There is no evidence of free fluid. Vasculature: The aorta is normal in caliber and contour. The inferior vena cava is grossly unremarkab le. There are mild atherosclerotic calcifications along the abdominal aorta and proximal renal arteri es. Lymphadenopathy: No pathologic lymphadenopathy is identified. Bladder: The bladder is well distended and smooth in contour. Reproductive: The uterus is surgically absent. Bones: No acute osseous abnormalities are identified. Soft tissues: No acute soft tissue abnormalities are identified. There is a small fat-containing vent ral umbilical hernia. IMPRESSION: 1. No evidence of acute intra-abdominal or intrapelvic pathology. 2. Status post cholecystectomy and hysterectomy. Electronically signed by: Sheyla Ford DO 05/12/2022 3:16 AM CDT Due to temporary technical issues with the PACS/FlueNcy reporting system, reports are being signed by the in house radiologists without review as a courtesy to insure prompt reporting. The interpreting radiologist is fully responsible for the content of the report.
--- NOTE | 2022-05-13 10:01 | ER ---
Nurse's Notes [facility] Name: Crys Murillo Age: 66 yrs Sex: Female : 1955 Arrival Date: 05/12/2022 Time: 00:53 Bed 24 Private MD: Diagnosis: Abdominal pain, Generalized Presentation: 05/12 00:59 Chief complaint: EMS states: got a tooth extracted today, took tyenol with codeine for sm5 the pain and started having abd pain radiating to back. Coronavirus screen: Vaccine status: Patient reports receiving the 2nd dose of the covid vaccine. Ebola Screen: No symptoms or risks identified at this time. Initial Sepsis Screen: Does the patient meet any 2 criteria? No. Patient's initial sepsis screen is negative. Does the patient have a suspected source of infection? No. Patient's initial sepsis screen is negative. Risk Assessment: Do you want to hurt yourself or someone else? Patient reports no desire to harm self or others. Onset of symptoms was May 12, 2022. 00:59 Method Of Arrival: EMS: [facility] 00:59 Acuity: ANGEL 4 sm5 Triage Assessment: 01:00 General: Appears in no apparent distress. Behavior is cooperative. Pain: Complains of sm5 pain in back and abdomen. Neuro: Level of Consciousness is awake, alert, obeys commands, Oriented to person, place, time, situation. Cardiovascular: Capillary refill < 3 seconds Patient's skin is warm and dry. Respiratory: Airway is patent Trachea midline Respiratory effort is even, unlabored. GI: Abdomen is non-distended, Abd is soft Abdomen is tender to palpation. Historical: - Allergies: 01:00 PENICILLINS; sm5 - Home Meds: 01:00 Lotrel 5-20 mg Oral cap 1 cap once daily [Active]; sm5 - PMHx: 01:00 Hypertension; sm5 - Immunization history:: Client reports receiving the 2nd dose of the Covid vaccine. - Social history:: Smoking status: Patient denies any tobacco usage or history of. Patient uses alcohol, occasionally. Screenin:01 Abuse screen: Denies threats or abuse. Denies injuries from another. Nutritional sm5 screening: No deficits noted. Tuberculosis screening: No symptoms or risk factors identified. Fall Risk None identified. Assessment: 01:21 Reassessment: see triage assessment. sm5 03:00 Reassessment: No changes from previously documented assessment. Patient and/or family sm5 updated on plan of care and expected duration. Pain level reassessed. 04:45 Reassessment: No changes from previously documented assessment. Patient and/or family sm5 updated on plan of care and expected duration. Pain level reassessed. Patient is alert, oriented x 3, equal unlabored respirations, skin warm/dry/pink. Vital Signs: 00:59 BP 140 / 72; Pulse 76; Resp 18; Temp 97.8(O); Pulse Ox 98% on R/A; Weight 102.06 kg; sm5 Height 5 ft. 7 in. (170.18 cm); Pain 3/10; 04:45 BP 140 / 70; Pulse 73; Resp 17; Pulse Ox 100% on R/A; sm5 00:59 Body Mass Index 35.24 (102.06 kg, 170.18 cm) sm5 ED Course: 00:53 Patient arrived in ED. mw2 00:56 Chacorta Chapman PA is PHCP. cp 00:56 Rupesh Mosley MD is Attending Physician. cp 00:59 Kell Colbert RN is Primary Nurse. sm5 01:00 Triage completed. sm5 01:01 Arm band placed on right wrist. sm5 01:01 Patient has correct armband on for positive identification. Bed in low position. Call sm5 light in reach. Side rails up X2. 01:21 Inserted saline lock: 20 gauge in left antecubital area, using aseptic technique. Blood sm5 collected. 01:27 XRAY Chest (1 view) In Process Unspecified. EDMS 02:40 CT Abd/Pelvis - IV Contrast Only In Process Unspecified. EDMS 05:06 No provider procedures requiring assistance completed. IV discontinued, intact, sm5 bleeding controlled, No redness/swelling at site. Pressure dressing applied. Administered Medications: No medications were administered Medication: 05:06 VIS not applicable for this client. sm5 Outcome: 04:40 Discharge ordered by . kdr 05:06 Discharged to home via wheelchair, with friend. sm5 05:06 Condition: stable 05:06 Discharge instructions given to patient, friend, Instructed on discharge instructions, follow up and referral plans. medication usage, Demonstrated understanding of instructions, follow-up care, medications, Prescriptions given X 1. 05:07 Patient left the ED. sm5 Signatures: Dispatcher [employer] EDMS Rupesh Mosley MD MD kdr Page, Corey, PA PA cp [place], [facility] Kell Colbert RN RN 5
--- NOTE | 2022-05-13 10:01 | EDPHYS ---
Physician Documentation [facility] Name: Crys Murillo Age: 66 yrs Sex: Female : 1955 Arrival Date: 05/12/2022 Time: 00:53 Bed 24 Private MD: ED Physician Rupesh Mosley HPI: 05/12 01:00 This 66 yrs old Female presents to ER via EMS with complaints of Abdominal Pain. cp 01:00 The patient presents with abdominal pain in the upper abdomen. Onset: The cp symptoms/episode began/occurred suddenly. The symptoms radiate to back. Associated signs and symptoms: Pertinent positives: nausea, Pertinent negatives: chest pain, constipation, diarrhea, dysuria, fever, shortness of breath, vomiting. The symptoms are described as constant. Severity of pain: in the emergency department the pain has improved markedly. Historical: - Allergies: 01:00 PENICILLINS; sm5 - Home Meds: 01:00 Lotrel 5-20 mg Oral cap 1 cap once daily [Active]; sm5 - PMHx: 01:00 Hypertension; sm5 - Immunization history:: Client reports receiving the 2nd dose of the Covid vaccine. - Social history:: Smoking status: Patient denies any tobacco usage or history of. Patient uses alcohol, occasionally. ROS: 01:05 Constitutional: Negative for body aches, chills, fever, poor PO intake. cp 01:05 Eyes: Negative for injury, pain, redness, and discharge. cp 01:05 Cardiovascular: Negative for chest pain, edema, palpitations. 01:05 Respiratory: Negative for cough, shortness of breath, wheezing. 01:05 Abdomen/GI: Positive for abdominal pain, nausea, Negative for vomiting, diarrhea, constipation. 01:05 Back: Positive for pain at rest, radiated pain, Negative for injury or acute deformity. cp 01:05 : Negative for urinary symptoms, flank pain, vaginal bleeding. cp 01:05 Skin: Negative for cellulitis, rash. 01:05 Neuro: Negative for altered mental status, dizziness, headache, numbness, weakness. 01:05 All other systems are negative. Exam: 01:10 Constitutional: The patient appears in no acute distress, alert, awake, cp non-diaphoretic, non-toxic, well developed, well nourished, obese, uncomfortable. 01:10 Head/Face: Normocephalic, atraumatic. cp 01:10 Eyes: Periorbital structures: appear normal, Conjunctiva: normal, no exudate, no injection, Sclera: no appreciated abnormality, Lids and lashes: appear normal, bilaterally. 01:10 ENT: External ear(s): are unremarkable, Nose: is normal, Mouth: Lips: moist, Oral mucosa: moist, Posterior pharynx: Airway: no evidence of obstruction, patent. 01:10 Neck: ROM/movement: is normal, is supple, without pain, no range of motions limitations. 01:10 Chest/axilla: Inspection: normal. 01:10 Cardiovascular: Rate: normal, Rhythm: regular, Edema: is not appreciated, JVD: is not appreciated. 01:10 Respiratory: the patient does not display signs of respiratory distress, Respirations: normal, no use of accessory muscles, no retractions, labored breathing, is not present, Breath sounds: are clear throughout, no decreased breath sounds, no stridor, no wheezing. 01:10 Abdomen/GI: Inspection: abdomen appears normal, Bowel sounds: active, all quadrants, Palpation: soft, in all quadrants, mild abdominal tenderness, in the epigastric area, right upper quadrant and left upper quadrant. 01:10 Back: CVA tenderness, is absent. 01:10 Skin: no rash present. 01:10 Neuro: Orientation: to person, place \T\ time. Mentation: is normal, Motor: moves all fours, strength is normal, Sensation: is normal. 01:27 ECG was reviewed by the Attending Physician. cp Vital Signs: 00:59 BP 140 / 72; Pulse 76; Resp 18; Temp 97.8(O); Pulse Ox 98% on R/A; Weight 102.06 kg; sm5 Height 5 ft. 7 in. (170.18 cm); Pain 3/10; 04:45 BP 140 / 70; Pulse 73; Resp 17; Pulse Ox 100% on R/A; sm5 00:59 Body Mass Index 35.24 (102.06 kg, 170.18 cm) sm5 MDM: 01:00 Patient medically screened. cp 01:30 Differential diagnosis: appendicitis, bowel obstruction, diverticulitis, gastritis, cp pancreatitis, Peptic Ulcer Disease, Perf. Duodenal Ulcer, Perf. Gastric Ulcer, Pyelonephritis, Ureterolithiasis, urinary tract infection. 02:45 Data reviewed: vital signs, nurses notes, lab test result(s), EKG, radiologic studies, cp plain films. 02:45 Test interpretation: by ED physician or midlevel provider: ECG, plain radiologic cp studies. Transition of care: After a detail discussion of the patient's case, care is transferred to Rupesh Mosley MD. 05/12 00:57 Order name: Basic Metabolic Panel; Complete Time: 01:50 cp / 01:50 Interpretation: Normal except: GFR 79; GLUC 130. cp / 00:57 Order name: CBC with Diff; Complete Time: 01:50 cp 05/12 00:57 Order name: LFT's; Complete Time: 01:50 cp 05/12 01:51 Interpretation: Normal except: A/G 1.0. cp / 00:57 Order name: Magnesium; Complete Time: 01:50 cp 05/12 00:57 Order name: Troponin HS; Complete Time: 01:50 cp 05/12 00:57 Order name: Lipase; Complete Time: 01:50 cp 05/12 00:57 Order name: XRAY Chest (1 view) cp 05/12 00:57 Order name: EKG; Complete Time: 00:58 cp 05/12 00:57 Order name: EKG - Nurse/Tech; Complete Time: 01:38 cp 05/12 00:57 Order name: IV Saline Lock; Complete Time: 01:21 cp 05/12 00:57 Order name: Urine Microscopic Only; Complete Time: 02:26 cp / 02:26 Interpretation: Normal except: URBC 5-10. cp / 01:10 Order name: CT Abd/Pelvis - IV Contrast Only cp / 01:38 Order name: Urine Dipstick-Ancillary; Complete Time: 01:50 EDMS 05/12 01:51 Interpretation: Normal except: UKET 1+; UBLD 1+. cp / 00:57 Order name: Labs collected and sent; Complete Time: 01:21 cp 05/12 00:57 Order name: O2 Per Protocol; Complete Time: 01:21 cp 05/12 00:57 Order name: O2 Sat Monitoring; Complete Time: 01:21 cp / 00:57 Order name: Urine Dipstick-Ancillary (obtain specimen); Complete Time: 01:37 cp EC:27 Rate is 74 beats/min. Rhythm is regular. VT interval is normal. QRS interval is normal. cp QT interval is normal. T waves are Inverted in lead aVR. Interpreted by me. Reviewed by me. Administered Medications: No medications were administered Disposition: 04:29 Co-signature as Attending Physician, Rupesh Mosley MD I agree with the assessment and kdr plan of care. Disposition Summary: 05/12/22 04:40 Discharge Ordered Location: Home kdr Problem: new kdr Symptoms: have improved kdr Condition: Stable kdr Diagnosis - Abdominal pain, Generalized kdr Followup: kdr - With: Private Physician - When: 2 - 3 days - Reason: If symptoms return, Further diagnostic work-up, Recheck today's complaints, Continuance of care, Re-evaluation by your physician Discharge Instructions: - Discharge Summary Sheet kdr - Abdominal Pain, Adult, Iynr-cy-Adce kdr Forms: - Medication Reconciliation Form kdr - Thank You Letter kdr Prescriptions: - Zofran 4 mg Oral Tablet - take 1 tablet by ORAL route every 12 hours As needed; 6 tablet; Refills: 0, kdr Product Selection Permitted Signatures: Dispatcher [employer] EDMS Rupesh Mosley MD MD kdr Chacorta Chapman PA PA cp Kell Colbert, RN RN sm5 Corrections: (The following items were deleted from the chart) 02:30 02:29 This 66 yrs old Female presents to ER via EMS with complaints of Abdominal Pain. cp cp
== END 2022-05-12 05:07 | disposition home or self-care (01) ==
LOC: ER 00:49
DX: R10.84 Generalized abdominal pain (principal); R11.0 Nausea; I10 Essential (primary) hypertension; Z88.0 Allergy status to penicillin
CPT/HCPCS: 93005; 85025; 80048; 36415; 83735; 80076; 84484; 83690; 74177; 71045; Q9967; 81003; 81015; 99284

== ENCOUNTER 2025-02-17 23:36 | Emergency (ER) | payer OTHER ==
--- OUTSIDE RECORDS SUMMARY | 2025-02-17 23:38 | XMS REPORT | Continuity of Care Document ---
Author Name Unknown Address [address] [place] [address] [facility] Address [address] [place] [address] Care Team Providers Care Oncology Rn Name Role Phone Jennifer Ann Primary Care Physician [phone] Doctor Unassigned, [place] Attending Clinician U PAMELA Julien Attending Clinician Unavailable Payers Payer Name Policy Type Policy Number Effective Date Expirati on Date Source MEDICARE PART A \T\ B [id number] 2018 00:00:00 Problems Condition Name Condition Details Condition Category Status Onset Date Resolution Date Last Treatment Date Treating Clinician Comments Source Dizziness Dizziness Disease Active 03-25 00:00: 00 [facility] Adult general medical exam Adult general medical exam Diagnosis Active [facility] Routine gynecologi sandoval examinatio n Routine gynecologi sandoval examinatio n Diagnosis Active [facility] Hyperlipid emia, mixed Hyperlipid emia, mixed Diagnosis Active [facility] Encounter for screening for malignant neoplasm of breast Encounter for screening for malignant neoplasm of breast Problem Active [facility] Vitamin D deficiency Vitamin D deficiency Diagnosis Active [facility] Allergic rhinitis Allergic rhinitis Problem Active [facility] HTN (hypertens ion) HTN (hypertens ion) Problem Active [facility] Viral wart Viral wart Problem Active [facility] Renal insufficie ncy Renal insufficie ncy Diagnosis Active [facility] Yeast vaginitis Yeast vaginitis Diagnosis Active [facility] Encounter for screening colonoscop y Encounter for screening colonoscop y Diagnosis Active [facility] Allergies, Adverse Reactions, Alerts Allergy Name Allergy Type Status Severity Reaction(s) Onset Date Inactive Date Treating Clinician Comments Source PENICILL INS Drug Class Active Anaphylaxis 03-25 00:00: 00 [facility] Penicill ins Propensi ty to adverse reaction s Active Anaphylaxis 03-25 00:00: 00 [facility] penicill in Adverse Reaction Active anaphylaxis [facility] Social History Social Habit Start Date Stop Date Quantity Comments Source Sexual orientation U [facility] Sex assigned at 1955 00:00:00 1955 00:00:00 [facility] Smoking Status Start Date Stop Date Source Tobacco smoking consumption unknown [facility] Medications Ordered Medication Name Filled Medication Name Start Date Stop Date Current Medication? Ordering Clinician Indication Dosage Frequency Signature (SIG) Comments Components Source Amlodipine Besy-Benaze pril HCl Amlodipine Besy-Benaze pril HCl 20 00:00: 00 Yes Na Ann as directed [facility] amLODIPine (NORVASC) 5 mg tablet 03-26 11:51: 06 Yes 5mg Take 5 mg by mouth daily. [facility] MONTELUKAST SODIUM (SINGULAIR ORAL) 03-26 11:51: 06 Yes 81mg Take by mouth. [facility] meclizine (ANTIVERT) 25 mg tablet 03-26 00:00: 00 Yes 25mg Take 1 tablet by mouth 3 (three) times daily as needed for Dizziness. [facility] Voltaren Voltaren Yes Na Ann not defined [facility] Aspir-81 Aspir-81 Yes Na Ann 1 tablet [facility] EpiPen 2-Robert EpiPen 2-Robert Yes Na Ann not defined [facility] Procedures Procedure Date / Time Performed Performing Clinicia n Source BREAST ULTRASOUND LIMITED 2016-08-13 20:18:00 Jennifer Ann [facility] Encounters Start Date/Time End Date/Time Encounter Type Admission Type Attending Clinicians Care Facility Care Department Encounter ID Source 2016-08-13 00:00:00 2024-11-25 04:02:59 Orders Only Doctor Unassigned, [place] Doctor Unassigned, [place] [facility] [id number] [facility] 2020-12-10 15:00:00 2020-12-10 15:00:00 Outpatient PAMELA AVALOS [facility] [id number] [facility] 2020-11-19 12:10:00 2020-11-19 12:10:00 Outpatient PAMELA AVALOS [facility] [id number] [facility] 2020-11-19 12:10:00 2020-11-19 12:10:00 Outpatient [facility] [id number] [facility] 2018-04-04 09:15:00 2018-04-04 09:15:00 [facility] [id number] Results Test Description Test Time Test Comments Results Resul t Comments Source BREAST ULTRASOUND LIMITED 3 21:39:00 *.*.*.*.*.*.*.*.*.*. *.*.*.*FINAL*.*.*.*. *.*.*.*.*.*.*.*.*.*. *History: LEFT BREAST: Indistinct and punctate calcifications distributed linearly in the upper inner quadrant measuring 20 mm, approximately 9cm from the nipple. Magnification Views are recommended at this time. Focal asymmetry measuring 14 millimeters wide in the upper outer quadrant, 13 cm from the nipple. Spot compression and possible ultrasound are recommended at this time. RIGHT BREAST: Focal asymmetry measuring 12 millimeters wide in the upper outer quadrant, 14 cm from the nipple. Spot compression and possible ultrasound are recommended at this time. Computer aided detection (CAD) utilized. Comparison is made to images from 08/03/2016 (bilateral). Left Breast Findings:The breast is heterogeneously dense (51% - 75% fibroglandular). This may lower the sensitivity of mammography. Coarse heterogeneous calcifications distributed linearly are present measuring 20 millimeters wide in the upper inner quadrant. On spot compression views, an oval mass measuring 10 mm in the upper outer quadrant, 13 cm from the nipple. Left Breast Ultrasound Findings: The breast tissue has a heterogeneous background echotexture. Targeted ultrasound demonstrates clustered microcysts measuring 8 mm combined length at 3 o'clock at a distance of 11 cm from the nipple correlating with the mammographic findings of the oval mass. Right Breast Findings:The breast is heterogeneously dense (51% - 75% fibroglandular). This may lower the sensitivity of mammography. No significant masses, calcifications or other abnormalities are seen. The density noted at recent screening mammography did not persist with additional imaging and is consistent with superimposition of normal breast tissue. ?Personally interpreted by: JAMES LAM MD /Signed/ JAMES LAM MD [facility]
[2025-02-18] MEDS ORDERED: NA CHLORIDE 0.9% 1,000 ML ONE (00:40)
[2025-02-18 00:56] LABS: Absolute Basophils 0.1 K/uL (0-0.5); Absolute Eosinophils 0.1 K/uL (0-0.5); Absolute Lymphocytes (CBC) 2.8 K/uL (0.7-4.9); Absolute Monocytes 0.6 K/uL (0.1-1.3); Absolute Neutrophil 5.1 K/uL (1.8-8.0); Basophils % 0.6 % (0-1.3); Eosinophils % 0.7 % (0-4.4); Hemoglobin 14.7 g/dL (12.0-15.0); Lymphocytes % 32.2 % (15.3-44.8); MCH 32.2 pg (27.0-35.0); MCHC 34.2 g/dL (32.0-36.0); MCV 93.9 fL (80-100); MPV 8.4 fL (7.6-11.3); Monocytes % 7.2 % (3.3-12.3); Neutrophils % 59.3 % (41.7-73.7); Platelets 318 thou/uL (152-406); RBC Red Blood Cell Count 4.58 M/uL (3.86-4.86); Red Cell Distribution Width 13.4 % (12.1-15.2)
[2025-02-18 01:02] LABS: PT Prothrombin Time 11.9 SECONDS (10-13.0); Protime INR 1.05
[2025-02-18 01:12] LABS: ALT/SGPT 20 U/L (13-56); AST/SGOT 15 U/L (15-37); Alkaline Phosphatase 91 U/L (45-117); Anion Gap 10.6 mEq/L (5.0-15.0); BUN Blood Urea Nitrogen 9 mg/dL (7-18); Bicarbonate 25 mEq/L (21-32); Bilirubin Total 0.5 mg/dL (0.2-1.0); Glomerular Filtration Rate 75 ml/min (=/>90); Glucose Level 104 mg/dL (74-106); Lipase 21 U/L (13-75); Magnesium 2.3 mg/dL (1.6-2.4); NT PRO-BNP 70 pg/mL (<125); Potassium 3.6 mEq/L (3.5-5.1); Sodium Level 136 mEq/L (136-145); Troponin High Sensitivity 8.7 pg/mL (<58.9)
[2025-02-18 01:17] LABS: Bilirubin Direct < 0.2 mg/dL (0-0.2); Bilirubin Indirect, Calculated 0.3 mg/dL (0.2-0.8)
[2025-02-18 01:22] LABS: Specific Gravity < 1.005 (1.005-1.030); Sqamous Epithelial None Seen /HPF (None Seen); Urine Bacteria None Seen /HPF (<20); Urine Bilirubin NEGATIVE (Negative); Urine Blood 1+ (Negative); Urine Clarity Turbid (Clear); Urine Color Colorless (Yellow); Urine Culture Reflex Order NOT NEEDED; Urine Glucose NEGATIVE (Negative); Urine Ketones 1+ (Negative); Urine Microscopic Reflex YN ORDER UMIC; Urine Nitrite NEGATIVE (Negative); Urine Protein NEGATIVE (Negative); Urine RBC <5 /HPF (None Seen); Urine Urobilinogen Normal (Normal); Urine WBC None Seen /HPF (<5)
[2025-02-18] MEDS ORDERED: BISACODYL 10 MG RECTAL SUPP ONE (01:27)
[2025-02-18] MEDS ORDERED: LACTULOSE 20 GM/30 ML UCUP ONE (01:27)
--- NOTE | 2025-02-18 02:12 | RAD REPORT ---
CLINICAL HISTORY: Abdominal distention. COMPARISON: None. TECHNIQUE: XR CHEST 1 VIEW 02/18/2025 12:10 AM CDT FINDINGS: Cardiac silhouette is normal in size. Lungs are clear without consolidation, atelectasis, mass or godwin ma. There is no pleural effusion. There is no pneumothorax. There are no acute osseous findings. IMPRESSION: Clear lungs. Electronically signed by: Thomas Cloud MD 02/18/2025 01:43 AM CDT RP Due to temporary technical issues with the PACS/Lyks reporting system, reports are being clayton d by the in-house radiologist without review as a courtesy to ensure prompt reporting the interpreting radiologist is fully responsible for the content of the report. Transcribed Date/Time: 02/18/2025 2:12 AM
[2025-02-18] MEDS ORDERED: OXYMETAZOLINE HCL 0.05% 30ML NAS ONE (02:37)
--- NOTE | 2025-02-18 06:00 | ER ---
Nurse's Notes [facility] Name: Crys Murillo Age: 69 yrs Sex: Female : 1955 Arrival Date: 02/17/2025 Time: 23:36 Bed 17 Private MD: Diagnosis: Abdominal pain, Generalized;Constipation Presentation: 02/18 00:20 Chief complaint: Patient states: constipation X3 weeks with abdominal pain. Coronavirus lg3 screen: Client denies travel out of the [place] in the last 14 days. At this time, the client does not indicate any symptoms associated with coronavirus-19. Ebola Screen: No symptoms or risks identified at this time. Initial Sepsis Screen: Does the patient meet any 2 criteria? No. Patient's initial sepsis screen is negative. Does the patient have a suspected source of infection? No. Patient's initial sepsis screen is negative. Risk Assessment: Do you want to hurt yourself or someone else? Patient reports no desire to harm self or others. Onset of symptoms is unknown. 00:20 Method Of Arrival: Ambulatory lg3 00:20 Acuity: ANGEL 3 lg3 Triage Assessment: 00:22 General: Appears in no apparent distress. comfortable, Behavior is calm, cooperative. lg3 Pain: Complains of pain in abdomen. EENT: No deficits noted. No signs and/or symptoms were reported regarding the EENT system. Neuro: No deficits noted. Lane Agitation-Sedation Scale (RASS): 0 - Alert and Calm Level of Consciousness is awake, alert, obeys commands, Oriented to person, place, time, situation. Cardiovascular: No deficits noted. Denies chest pain, shortness of breath, Capillary refill < 3 seconds Clubbing of nail beds is absent JVD is absent Patient's skin is warm and dry. Respiratory: No deficits noted. Airway is patent Respiratory effort is even, unlabored, Respiratory pattern is regular, symmetrical. GI: No deficits noted. Abdomen is round non-distended, obese, Reports constipation, cramping. : No signs and/or symptoms were reported regarding the genitourinary system. Derm: No deficits noted. No signs and/or symptoms reported regarding the dermatologic system. Skin is intact, is healthy with good turgor, Skin is dry, Skin is normal, Skin temperature is warm. Musculoskeletal: No deficits noted. No signs and/or symptoms reported regarding the musculoskeletal system. Circulation, motion, and sensation intact. Range of motion: intact in all extremities. Historical: - Allergies: 00:22 PENICILLINS; lg3 - Home Meds: 00:22 amlodipine 5 mg oral tablet [Active]; rosuvastatin 5 mg oral tablet [Active]; metformin lg3 500 mg Oral tablet daily [Active]; - PMHx: 00:22 Hypertension; Diabetes mellitus; Hypercholesterolemia; lg3 - PSHx: 00:22 Cholecystectomy; Total abdominal hysterectomy; shoulder; lg3 - Immunization history:: Adult Immunizations up to date. - Infectious Disease History:: Denies. - Social history:: Smoking status: Patient denies any tobacco usage or history of. Patient uses alcohol, but reports only rare drinking. - Family history:: not pertinent. Screenin:54 [facility] ED Fall Risk Assessment (Adult) History of falling in the last 3 months, rg5 including since admission No falls in past 3 months (0 pts) Confusion or Disorientation No (0 pts) Intoxicated or Sedated No (0 pts) Impaired Gait No (0 pts) Mobility Assist Device Used No (0 pt) Altered Elimination No (0 pt) Score/Fall Risk Level 0 - 2 = Low Risk Oriented to surroundings, Maintained a safe environment, Hourly rounding (assess needs \T\ fall precautionary measures) done. Abuse screen: Denies threats or abuse. Nutritional screening: No deficits noted. Tuberculosis screening: No symptoms or risk factors identified. Assessment: 00:54 General: Appears in no apparent distress. comfortable, Behavior is calm, cooperative, rg5 appropriate for age. Pain: Complains of pain in abdomen Quality of pain is described as aching. Neuro: Level of Consciousness is awake, alert, obeys commands, Oriented to person, place, time, situation. Cardiovascular: Denies chest pain, Rhythm is sinus rhythm. Respiratory: Airway is patent Trachea midline Respiratory effort is even, unlabored, Respiratory pattern is regular, symmetrical. GI: Bowel sounds present in right lower quadrant Abd is soft Reports lower abdominal pain, constipation. : No signs and/or symptoms were reported regarding the genitourinary system. EENT: No signs and/or symptoms were reported regarding the EENT system. Derm: Skin is intact, Skin is dry, Skin is normal, Skin temperature is warm. Musculoskeletal: Circulation, motion, and sensation intact. Range of motion: intact in all extremities. 01:38 Reassessment: No changes from previously documented assessment. Patient and/or family rg5 updated on plan of care and expected duration. Pain level reassessed. Patient is alert, oriented x 3, equal unlabored respirations, skin warm/dry/pink. 02:31 Reassessment: No changes from previously documented assessment. Patient and/or family rg5 updated on plan of care and expected duration. Pain level reassessed. Patient is alert, oriented x 3, equal unlabored respirations, skin warm/dry/pink. 03:32 Reassessment: Patient and/or family updated on plan of care and expected duration. Pain rg5 level reassessed. Patient is alert, oriented x 3, equal unlabored respirations, skin warm/dry/pink. Patient states symptoms have improved. 04:20 Reassessment: Patient and/or family updated on plan of care and expected duration. Pain rg5 level reassessed. Patient is alert, oriented x 3, equal unlabored respirations, skin warm/dry/pink. Patient states symptoms have improved. 05:12 Reassessment: Patient and/or family updated on plan of care and expected duration. Pain rg5 level reassessed. Patient is alert, oriented x 3, equal unlabored respirations, skin warm/dry/pink. Patient states symptoms have improved. Vital Signs: 00:20 BP 152 / 94; Pulse 90; Resp 16; Temp 98.7(O); Pulse Ox 99% on R/A; Weight 95.25 kg (R); lg3 Height 5 ft. 7 in. (R); Pain 5; 00:54 BP 164 / 80; Pulse 90; Resp 18; Pulse Ox 99% on R/A; rg5 01:38 BP 133 / 107; Pulse 89; Resp 18; Pulse Ox 98% on R/A; rg5 02:31 BP 134 / 75; Pulse 83; Resp 17; Pulse Ox 97% on R/A; rg5 03:31 BP 146 / 69; Pulse 84; Resp 18; Pulse Ox 96% on R/A; rg5 05:11 BP 153 / 82; Pulse 77; Resp 17; Pulse Ox 98% on R/A; Pain 3/10; rg5 00:20 Body Mass Index 32.89 (95.25 kg, 170.18 cm) lg3 00:20 Pain Scale: Adult lg3 05:11 Pain Scale: Adult rg5 ED Course: 02/17 23:41 Patient arrived in ED. gm2 02/18 00:08 Chacorta Bob MD is Attending Physician. gonzalo 00:22 Triage completed. lg3 00:22 Arm band placed on right wrist. lg3 00:28 Vick Kelley, BERNABE is Primary Nurse. rg5 00:50 XRAY Chest (1 view) In Process Unspecified. EDMS 00:54 Patient has correct armband on for positive identification. Bed in low position. Call rg5 light in reach. Side rails up X 1. Door closed. Noise minimized. 00:54 No provider procedures requiring assistance completed. Inserted saline lock: 20 gauge rg5 in right antecubital area, using aseptic technique. Blood collected. Flushed with 10 mL NS. Patient maintains SpO2 saturation greater than 95% on room air. 01:48 EKG done, by ED staff. vk 02:58 CT Abd/Pelvis - PO and IV Contrast In Process Unspecified. EDMS 03:33 Assisted to bathroom. rg5 06:14 IV discontinued, bleeding controlled, No redness/swelling at site. Pressure dressing rg5 applied. 06:15 Provided Education on: post er care done. rg5 Administered Medications: 00:53 Drug: NS 0.9% IV 1000 ml IV at 1000 ml once; to be given as a bolus over 60 minutes rg5 Route: IV; Rate: 1000 ml; Site: right antecubital; 06:06 Follow up: IV Status: Completed infusion; IV Intake: 1000ml rg5 01:25 Drug: Lactulose PO 60 grams 45 ml PO once Volume: 45 ml; Route: PO; rg5 02:30 Follow up: Response: No adverse reaction rg5 01:25 Drug: Dulcolax CO Suppository 10 mg CO once Route: CO; rg5 02:30 Follow up: Response: No adverse reaction rg5 02:39 Drug: Oxymetazoline Intranasal Drops (0.05 %) 1 sprays Intranasal once Route: rg5 Intranasal; Site: both nares; 03:00 Follow up: Response: No adverse reaction rg5 Medication: 00:54 VIS not applicable for this client. rg5 Intake: 06:06 IV: 1000ml; Total: 1000ml. rg5 Outcome: 05:59 Discharge ordered by . gonzalo 06:14 Discharged to home ambulatory, rgOrtiz 06:14 Discharged to home ambulatory, rg5 06:14 Condition: stable 06:14 Discharge instructions given to patient, Prescriptions given X 4, 06:15 Patient left the ED. rg5 Signatures: Dispatcher [employer] EDChacorta Prasad MD MD cha Able, Lacie, RN RN [email or web address] Roselia Gonsales Vivian vk Gallardo, Rommel, RN RN rg5
--- NOTE | 2025-02-18 06:00 | EDPHYS ---
Physician Documentation [facility] Name: Crys Murillo Age: 69 yrs Sex: Female : 1955 Arrival Date: 02/17/2025 Time: 23:36 Bed 17 Private MD: KISHA Physician Chacorta Bob HPI: 02/18 03:20 This 69 yrs old Female presents to ER via Ambulatory with complaints of gonzalo Abdominal Pain, Constipation. 03:20 The patient presents with abdominal pain in the upper abdomen, in the lower abdomen, gonzalo abdominal distention. Onset: The symptoms/episode began/occurred 3 day(s) ago. The symptoms do not radiate. Associated signs and symptoms: none. Modifying factors: The symptoms are alleviated by nothing, the symptoms are aggravated by movement. Severity of pain: At its worst the pain was mild moderate in the emergency department the pain is unchanged. The patient has not experienced similar symptoms in the past. Historical: - Allergies: 00:22 PENICILLINS; lg3 - Home Meds: 00:22 amlodipine 5 mg oral tablet [Active]; rosuvastatin 5 mg oral tablet [Active]; metformin lg3 500 mg Oral tablet daily [Active]; - PMHx: 00:22 Hypertension; Diabetes mellitus; Hypercholesterolemia; lg3 - PSHx: 00:22 Cholecystectomy; Total abdominal hysterectomy; shoulder; lg3 - Immunization history:: Adult Immunizations up to date. - Infectious Disease History:: Denies. - Social history:: Smoking status: Patient denies any tobacco usage or history of. Patient uses alcohol, but reports only rare drinking. - Family history:: not pertinent. ROS: 03:20 Constitutional: Negative for fever, chills, and weight loss, Eyes: Negative for injury, gonzalo pain, redness, and discharge, ENT: Negative for injury, pain, and discharge, Neck: Negative for injury, pain, and swelling, Cardiovascular: Negative for chest pain, palpitations, and edema, Respiratory: Negative for shortness of breath, cough, wheezing, and pleuritic chest pain, Back: Negative for injury and pain, : Negative for injury, bleeding, discharge, and swelling, MS/Extremity: Negative for injury and deformity, Skin: Negative for injury, rash, and discoloration, Neuro: Negative for headache, weakness, numbness, tingling, and seizure, Psych: Negative for depression, anxiety, suicide ideation, homicidal ideation, and hallucinations, Allergy/Immunology: Negative for hives, rash, and allergies, Endocrine: Negative for neck swelling, polydipsia, polyuria, polyphagia, and marked weight changes, 03:20 Abdomen/GI: Positive for abdominal pain, constipation, abdominal cramps, abdominal distension, Exam: 03:20 Constitutional: This is a well developed, well nourished patient who is awake, alert, gonzalo and in no acute distress. Head/Face: Normocephalic, atraumatic. Eyes: Pupils equal round and reactive to light, extra-ocular motions intact. Lids and lashes normal. Conjunctiva and sclera are non-icteric and not injected. Cornea within normal limits. Periorbital areas with no swelling, redness, or edema. ENT: Nares patent. No nasal discharge, no septal abnormalities noted. Tympanic membranes are normal and external auditory canals are clear. Oropharynx with no redness, swelling, or masses, exudates, or evidence of obstruction, uvula midline. Mucous membranes moist. Neck: Trachea midline, no thyromegaly or masses palpated, and no cervical lymphadenopathy. Supple, full range of motion without nuchal rigidity, or vertebral point tenderness. No Meningismus. Chest/axilla: Normal chest wall appearance and motion. Nontender with no deformity. No lesions are appreciated. Cardiovascular: Regular rate and rhythm with a normal S1 and S2. No gallops, murmurs, or rubs. Normal PMI, no JVD. No pulse deficits. Respiratory: Lungs have equal breath sounds bilaterally, clear to auscultation and percussion. No rales, rhonchi or wheezes noted. No increased work of breathing, no retractions or nasal flaring. Back: No spinal tenderness. No costovertebral tenderness. Full range of motion. Skin: Warm, dry with normal turgor. Normal color with no rashes, no lesions, and no evidence of cellulitis. MS/ Extremity: Pulses equal, no cyanosis. Neurovascular intact. Full, normal range of motion., bilateral aka Neuro: Awake and alert, GCS 15, oriented to person, place, time, and situation. Cranial nerves II-XII grossly intact. Motor strength 5/5 in all extremities. Sensory grossly intact. Cerebellar exam normal. Normal gait. Psych: Awake, alert, with orientation to person, place and time. Behavior, mood, and affect are within normal limits. 03:20 Abdomen/GI: Inspection: distension, Bowel sounds: normal, Palpation: mild abdominal tenderness, in all quadrants, Liver: no appreciated palpable abnormalities, Hernia: not appreciated, 03:51 ECG was reviewed by the Attending Physician. [facility] Vital Signs: 00:20 BP 152 / 94; Pulse 90; Resp 16; Temp 98.7(O); Pulse Ox 99% on R/A; Weight 95.25 kg (R); lg3 Height 5 ft. 7 in. (R); Pain 5/10; 00:54 BP 164 / 80; Pulse 90; Resp 18; Pulse Ox 99% on R/A; rg5 01:38 BP 133 / 107; Pulse 89; Resp 18; Pulse Ox 98% on R/A; rg5 02:31 BP 134 / 75; Pulse 83; Resp 17; Pulse Ox 97% on R/A; rg5 03:31 BP 146 / 69; Pulse 84; Resp 18; Pulse Ox 96% on R/A; rg5 05:11 BP 153 / 82; Pulse 77; Resp 17; Pulse Ox 98% on R/A; Pain 3/10; rg5 00:20 Body Mass Index 32.89 (95.25 kg, 170.18 cm) lg3 00:20 Pain Scale: Adult lg3 05:11 Pain Scale: Adult rg5 MDM: 00:08 Medical Screening Exam initiated gonzalo 03:27 Differential diagnosis: bowel obstruction, Cholelithiasis, gastritis, gastroesophageal gonzalo reflux disease, Mesenteric ischemia or infarction, non-specific abd pain, pancreatitis, Peptic Ulcer Disease, Pyelonephritis, Ureterolithiasis, urinary tract infection. Data reviewed: vital signs, nurses notes. Consideration of Admission/Observation Escalation of care including admission/observation considered. I considered the following discharge prescriptions or medication management in the emergency department Medications were administered in the Emergency Department. See MAR. Independent interpretation of the following test(s) in the Emergency Department EKG: See my EKG interpretation above. Test considered but Not performed: Ultrasound no abd usg. Care significantly affected by the following chronic conditions: Diabetes, Hypertension, Obesity. Counseling: I had a detailed discussion with the patient and/or guardian regarding the historical points, exam findings, and any diagnostic results supporting the discharge/admit diagnosis, lab results, radiology results, the need for outpatient follow up, for definitive care, a family practitioner, a general surgeon. 02/18 00:10 Order name: Basic Metabolic Panel; Complete Time: 02:03 [facility] 02/18 00:10 Order name: CBC with Diff; Complete Time: 02:03 [facility] 02/18 00:10 Order name: LFT's; Complete Time: 02:03 [facility] 02/18 00:10 Order name: Magnesium; Complete Time: 02:03 [facility] 02/18 00:10 Order name: NT PRO-BNP; Complete Time: 02:03 [facility] 02/18 00:10 Order name: PT-INR; Complete Time: 02: [facility] 02/18 00:10 Order name: Troponin HS; Complete Time: 02: [facility] 02/18 00:10 Order name: Lipase; Complete Time: 02: [facility] 02/18 00:10 Order name: UA Rfx Jonatan Cult if indicated; Complete Time: 02:03 [facility] 02/18 00:10 Order name: XRAY Chest (1 view) [facility] 02/18 00:31 Order name: CT Abd/Pelvis - PO and IV Contrast [facility] 02/18 00:10 Order name: EKG; Complete Time: 00: [facility] 02/18 00:10 Order name: Cardiac monitoring; Complete Time: 00:53 [facility] 02/18 00:10 Order name: EKG - Nurse/Tech; Complete Time: 01:35 [facility] 02/18 00:10 Order name: IV Saline Lock; Complete Time: 00:54 [facility] 02/18 00:10 Order name: Labs collected and sent; Complete Time: 00:54 [facility] 02/18 00:10 Order name: O2 Per Protocol; Complete Time: 00:54 [facility] 02/18 00:10 Order name: O2 Sat Monitoring; Complete Time: 00:54 [facility] EC:51 Rate is 79 beats/min. Rhythm is regular. QRS [place] is Normal. IA interval is normal. QRS gonzalo interval is normal. QT interval is normal. No Q waves. T waves are Normal. No ST changes noted. Clinical impression: NSR w/ Non-specific ST/T Changes and No evidence of ischemia. Interpreted by me. Reviewed by me. Administered Medications: 00:53 Drug: NS 0.9% IV 1000 ml IV at 1000 ml once; to be given as a bolus over 60 minutes rg5 Route: IV; Rate: 1000 ml; Site: right antecubital; 06:06 Follow up: IV Status: Completed infusion; IV Intake: 1000ml rg5 01:25 Drug: Lactulose PO 60 grams 45 ml PO once Volume: 45 ml; Route: PO; rg5 02:30 Follow up: Response: No adverse reaction rg5 01:25 Drug: Dulcolax IA Suppository 10 mg IA once Route: IA; rg5 02:30 Follow up: Response: No adverse reaction rg5 02:39 Drug: Oxymetazoline Intranasal Drops (0.05 %) 1 sprays Intranasal once Route: rg5 Intranasal; Site: both nares; 03:00 Follow up: Response: No adverse reaction rg5 Disposition Summary: 02/18/25 05:59 Discharge Ordered Notes: [facility] Problem: new gonzalo Symptoms: have improved gonzalo Condition: Stable gonzalo Diagnosis - Abdominal pain, Generalized gonzalo - Constipation gonzalo Followup: gonzalo - With: Private Physician - When: 2 - 3 days - Reason: Recheck today's complaints, Continuance of care, Re-evaluation by your physician Discharge Instructions: - Discharge Summary Sheet gonzalo - Abdominal Pain, Adult gonzalo - Constipation, Adult gonzalo - Constipation, Adult, [id number] gonzalo - Abdominal Pain, Adult, [id number] Forms: - Medication Reconciliation Form [facility] - Antibiotic Education gonzalo - Prescription Opioid Use [facility] - Patient Portal Instructions [facility] - Leadership Thank You Letter [facility] Prescriptions: - Dulcolax (bisacodyl) 10 mg Rectal suppository - insert 1 suppository RECTAL route every 12 hours for 5 days; 10 suppository; [facility] Refills: 0, Product Selection Permitted - ondansetron 4 mg Oral Tablet,disintegrating - take 1 tablet ORAL route every 8 hours prn; 20 tablet; Refills: 0, Product gonzalo Selection Permitted - Pepcid 20 mg Oral Tablet - take 1 tablet ORAL route every 12 hours for 10 days; 20 tablet; Refills: 0, [facility] Product Selection Permitted - Lactulose 10 gram/15 mL Oral Solution - take 30 milliliters ORAL route once daily; 300 milliliter; Refills: 0, Product gonzalo Selection Permitted - dicyclomine 20 mg Oral tablet - take 1 tablet ORAL route 4 times per day prn; 28 tablet; Refills: 0, Product gonzalo Selection Permitted Signatures: Dispatcher [employer] Chacorta Brown MD MD gonzalo Able, Yelitza, RN RN lg3 Vick Kelley, RN RN rg5 Corrections: (The following items were deleted from the chart) 00:11 00:10 BASIC METABOLIC PANEL+C.LAB.BRZ ordered. EDMS EDMS 00:11 00:10 CBC+H.LAB.BRZ ordered. EDMS EDMS 00:11 00:10 HEPATIC FUNCTION+C.LAB.BRZ ordered. EDMS EDMS 00: 00:10 MAGNESIUM+C.LAB.BRZ ordered. EDMS EDMS 00: 00:10 PROBNP+C.LAB.BRZ ordered. EDMS EDMS 00: 00:10 PROTIME (+INR)+COAG.LAB.BRZ ordered. EDMS EDMS 00: 00:10 Troponin High Sensitivity+C.LAB.BRZ ordered. EDMS EDMS 00: 00:10 LIPASE+C.LAB.BRZ ordered. EDMS EDMS 00: 00:10 UA Rfx Jonatan Cult if indicated+U.LAB.BRZ ordered. EDMS EDMS 00:37 00:11 Abdomen Pelvis W Con+CT.RAD.BRZ ordered. EDMS EDMS
[2025-02-18 06:23] VITALS: TEMP 98.7
[2025-02-18 06:30] VITALS: BP 153/82; O2SAT 98
--- NOTE | 2025-02-18 06:58 | RAD REPORT ---
CLINICAL HISTORY: Abdominal pain, constipation. COMPARISON: CT Abdomen Pelvis 05/12/2022. TECHNIQUE: CT ABDOMEN PELVIS WITH IV CONTRAST on 02/18/2025 12:31 AM CDT This exam was performed according to our departmental dose-optimization program, which includes autom ated exposure control, adjustment of the mA and/or kV according to patient size and/or use of iterative reconstruction technique. FINDINGS: Lower lungs are clear. Abdomen: The liver is normal in appearance. There is no biliary dilatation. Cholecystectomy was perfo rmed. The pancreas and spleen are normal in appearance. The adrenal glands and kidneys are unremarkable. Abdominal aorta is moderately calcified without aneurysm. There is no free air. There is no retroperi toneal adenopathy. Pelvis: There is no bowel obstruction. Urinary bladder is unremarkable. There is no free fluid. Uteru s is absent. Appendix is normal. Skeleton: There are no acute osseous findings. No suspicious bony lesions. IMPRESSION: No acute process. Electronically signed by: Thomas Cloud MD 02/18/2025 05:55 AM CDT RP Due to temporary technical issues with the PACS/FriendFeed reporting system, reports are being clayton d by the in-house radiologist without review as a courtesy to ensure prompt reporting the interpreting radiologist is fully responsible for the content of the report. Transcribed Date/Time: 02/18/2025 6:58 AM
--- NOTE | 2025-02-19 11:59 | EKG ---
Test Date: 2025-02-18 Test Time: 01:38:17 Package Line Relief Operator: MARGARITA MEASUREMENT RESULTS: Intervals: Rate: 79 TX: 146 QRSD: 76 QT: 378 QTc: 433 [place]: P: 43 TX: 146 QRS: 75 T: 47 INTERPRETIVE STATEMENTS: Normal sinus rhythm Nonspecific ST and T wave abnormality Abnormal ECG Compared to ECG 05/12/2022 01:21:29 ST (T wave) deviation now present Electronically Signed On 02-19-25 11:56:45 CDT by Alexandre Subramanian
== END 2025-02-18 06:15 | disposition home or self-care (01) ==
LOC: ER 23:36
DX: K59.00 Constipation, unspecified (principal); E11.9 Type 2 diabetes mellitus without complications; I10 Essential (primary) hypertension
CPT/HCPCS: 96361; 93005; 85025; 81001; 80048; 36415; 83735; 85610; 80076; 84484; 83690; 83880; 74177; 71045; 96360; 99284; Q9967; J7030